=== PATIENT | male | born 1950 | race Caucasian/White ===

== ENCOUNTER → 2018-02-13 | Day surgery (SDC) | payer MEDICARE, OTHER ==
[~2018-02-13] VITALS: Ht 170.2 cm; Wt 100.3 kg
[~2018-02-13] MED LIST: ASCO10006 PO; ASPI-586 PO; FERR-84 PO; HEParin 1000 UNIT/ML (10ML VIAL) FOR BOLUS ONE; LACT1TAB25 PO; LEVO175T5 PO; LIDOCAINE 1% INJ 20 ML 20 ML VIAL ONE; LISI40TA PO; MAGN500C15 PO; METO-370 PO; MIDAZOLAM 5 MG/5 ML (VERSED) VIAL ONE; MULT-1061 PO; NITR0.4T42 SL; NITRO DRIP 25000 MCG/D5W 0 ML IV ONE; NS IV 1000 ML 1,000 ML IV ONE; NS IV 1000 ML 1,000 ML IV SCH; OMEG1CAP58 PO; OXYB5TAB9 PO; PANT40TA3 PO; PATIENT MAY USE OWN MEDS, ALL PO SCH; POTA99TA21 PO; SAW450CA7 PO; SIMV40TA4 PO; TAMS0.4C2 PO; TRAZ-190 PO; diphenhydrAMINE 50 MG/ML INJ (BENADRYL) ONE; fentaNYL INJECTION 100 MCG/2 ML AMP ONE
[2018-02-13 09:32] LABS: HEMOGLOBIN 14.1 G/DL (13.3-17.7); MEAN PLATELET VOLUME 10.8 FL (7.4-10.4); RED BLOOD COUNT 4.51 10^6/uL (4.35-5.85); RED CELL DISTRIBUTION WIDTH 13.2 % (10.0-14.5); WHITE BLOOD COUNT 6.2 10^3/uL (4.3-11.0)
[2018-02-13 09:46] LABS: INR 1.1 (0.8-1.4)
[2018-02-13 09:53] LABS: ALANINE AMINOTRANSFERASE 44 U/L (0-55); ALBUMIN 4.1 GM/DL (3.2-4.5); ALKALINE PHOSPHATASE 86 U/L (40-136); BILIRUBIN,TOTAL 0.8 MG/DL (0.1-1.0); BUN/CREATININE RATIO 18; CALCIUM 9.1 MG/DL (8.5-10.1); CARBON DIOXIDE 26 MMOL/L (21-32); CHLORIDE 105 MMOL/L (98-107); CHOLESTEROL 155 MG/DL (< 200); CREATININE SERUM 1.01 MG/DL (0.60-1.30); GFR ESTIMATED > 60; GLUCOSE 90 MG/DL (70-105); HDL CHOLESTEROL 27 MG/DL (40-60); SODIUM 139 MMOL/L (135-145); TOTAL PROTEIN 6.6 GM/DL (6.4-8.2); TRIGLYCERIDES 87 MG/DL (<150); VLDL CHOLESTEROL 17 MG/DL (5-40)
[2018-02-13 10:25] VITALS: BP 128/81
--- NOTE | 2018-02-13 12:31 | Cardiac Procedure Note-CS/ASA ---
Pre-Procedure Note Pre-Op Procedure Note H&P Reviewed The H&P was reviewed, patient examined and no changes noted. Date H&P Reviewed: Feb 13, 2018 Time H&P Reviewed: 12:31 Conscious Sedation Pre-Proced Time Reviewed: 12:31 ASA Class: 3 Airway Mallampati Classification: ([place] appropriate class) I. II. III, IV Lungs Heart ASA score ASA 1: a normal healthy patient ASA 2: a patient with a mild systemic disease (mid diabetes, controlled hypertension, obesity ASA 3: a patient with a severe systemic disease that limits activity (angina , COPD, prior Myocardial infarction) ASA 4: a patient with an incapacitating disease that is a constant threat to life (CHF, renal failure) ASA 5: a moribund patient not expected to survive 24 hrs. (ruptured aneurysm) ASA 6: a declared brain patient whose organs are being harvested. For emergent operations, add the letter E after the classification Grade 2 Sedation Plan: Analgesia, Amnesia, Plan communicated to team members, Discussed options with patient/fam, Discussed risks with patient/fam Note The patient is an appropriate candidate to undergo the planned procedure, sedation, and anesthesia. The patient immediately re-assessed prior to indication. MORGAN ARIAS MD FACP FAC CCDS Feb 13, 2018 12:31
--- NOTE | 2018-02-13 13:31 | CARDIAC CATHETERIZATION ---
DATE OF SERVICE: 02/13/2018 CARDIAC CATHETERIZATION REPORT INDICATIONS: The patient is a 67-year-old man, who has had the symptoms of new onset of angina. He has coronary artery disease risk factors. Cardiac catheterization was carried out today after having obtained an informed consent. PROCEDURE: He was brought to the cardiac catheterization laboratory in a fasting state. The right groin was prepared in the usual sterile fashion. Lidocaine 1% was used as local anesthesia. Modified Seldinger technique was used to advance a 5-Italian sheath in the right femoral artery, 5-Italian JL4 catheter for left coronary angiography, 5-Italian JR4 catheter for right coronary angiography and a 5-Italian pigtail catheter was used for left heart catheterization and left ventricular angiography. At the end of the procedure, angiography of the right femoral artery was carried out through the sheath. Mynx was used to achieve hemostasis. He tolerated the procedure well. HEMODYNAMICS: Left ventricular end-diastolic pressure following coronary angiography was 15 mmHg. There was no significant pressure gradient on pullback across the aortic valve. Ascending aortic pressure was 121/72 with a mean of 94 mmHg. LEFT VENTRICULAR ANGIOGRAPHY: Left ventricular angiography was carried out in the right anterior oblique projection. Global left ventricular systolic function is normal. No regional wall motion abnormalities are seen and left ventricular ejection fraction is approximately 60%. CORONARY ANGIOGRAPHY: The left main coronary artery does not exhibit significant peripheral disease. Left anterior descending artery has 60% stenosis following the origin of the first diagonal branch. Following the origin of the second diagonal branch, there is 99% stenosis of the left anterior descending artery. Further downstream, there is approximately 70% stenosis of the mid left anterior descending. The first diagonal branch has approximately 50% proximal stenosis. This is a small caliber vessel. The second diagonal branch has 70% to 80% proximal stenosis. This is a fairly large caliber branch. The left circumflex artery has mild plaques. Right coronary artery is dominant and has multiple up to 50% stenoses throughout its course. CONCLUSIONS: 1. Coronary artery disease primarily consisting of up to 99% bifurcation stenosis within the mid left anterior descending artery at the site of the bifurcation with a large second diagonal branch. The right coronary artery has diffuse moderate disease. 2. Normal global left ventricular systolic function with ejection fraction approximately 60%. 3. Mild elevation of the left ventricular end-diastolic pressure. 4. No significant mitral regurgitation. DISCUSSION AND RECOMMENDATIONS: Based on results of the study, it appears that coronary artery bypass surgery would be a better and more durable treatment option. We discussed this with the patient and I spoke with Dr. Rodriguez of the cardiovascular thoracic surgery at the [facility] in [place], [place], who has kindly accepted the patient in transfer. Arrangements are being made for transfer at the time of this dictation. Job ID: [id number] DocumentID: [id number] Dictated Date: 02/13/2018 13:16:05 Mini Shifter Date: 02/13/2018 13:30:11 Dictated By: MORGAN ARIAS MD, MA, FACP, FACC,
[2018-02-13 13:51] VITALS: BP 136/88
[2018-02-13 14:00] VITALS: BP 136/88
[2018-02-13 14:08] VITALS: BP 141/89
[2018-02-13 14:15] VITALS: BP 127/85
--- NOTE | 2018-02-26 16:39 | Cardiology Discharge Summary ---
Diagnosis/Chief Complaint Date of Admission 02/13/18 Date of Discharge 02/13/18 Final/Discharge Diagnosis Angina pectoris CAD: Card cath of 02/14/18 showed coronary artery disease primarily consisting of up to 99% bifurcation stenosis within the mid left anterior descending artery at the site of the bifurcation with a large second diagonal branch. The right coronary artery has diffuse moderate disease. Normal global left ventricular systolic function with ejection fraction approximately 60%. Chief Complaint/HPI Chief Complaint/HPI 67 yo man with new onset of angina found to have considerable CAD for which CABG appears to be the best treatment option. Spoke with Dr Rodriguez at [facility]. He accepted pt in transfer. Pt transferred in stable condition after we had discussed the rationale, pros, and cons of the transfer Discharge Summary Procedures None. Discussion & Recommendations Home Medications Reviewed patient Home Medication Reconciliation performed by pharmacy medication reconciliations test technician and/or nursing. Patients Allergies have been reviewed. Discharge Home Medications: Reviewed and agree with Discharge Medication list on patient's Discharge Instruction sheet MORGAN ARIAS MD FACP FAC CCDS Feb 26, 2018 16:39
== END | disposition home or self-care (01) ==
LOC: CATH 08:49
PROVIDERS: ATTEND Internal Medicine Cardiovascular Disease
DX: I25.10 Atherosclerotic heart disease of native coronary artery without angina pectoris (principal); I10 Essential (primary) hypertension; N40.0 Benign prostatic hyperplasia without lower urinary tract symptoms; E66.9 Obesity, unspecified; Z68.34 Body mass index [BMI] 34.0-34.9, adult; Z82.49 Family history of ischemic heart disease and other diseases of the circulatory system; Z79.82 Long term (current) use of aspirin; Z79.899 Other long term (current) drug therapy
CPT/HCPCS: 36415; 80053; 80061; 85027; 85610; 85730; 87081; 93458

== ENCOUNTER 2018-06-10 00:52 | Observation (INO) | payer MEDICARE, OTHER ==
[~2018-06-10] VITALS: Ht 170.2 cm; Wt 104.9 kg
[2018-06-10] VITALS (15 sets, daily range): BP systolic 82–168; BP diastolic 62–93
[~2018-06-10 00:52] MED LIST changes: -HEParin 1000 UNIT/ML (10ML VIAL) FOR BOLUS ONE; -LIDOCAINE 1% INJ 20 ML 20 ML VIAL ONE; -MIDAZOLAM 5 MG/5 ML (VERSED) VIAL ONE; -NITRO DRIP 25000 MCG/D5W 0 ML IV ONE; -NS IV 1000 ML 1,000 ML IV ONE; -NS IV 1000 ML 1,000 ML IV SCH; -PATIENT MAY USE OWN MEDS, ALL PO SCH; -diphenhydrAMINE 50 MG/ML INJ (BENADRYL) ONE; -fentaNYL INJECTION 100 MCG/2 ML AMP ONE
[2018-06-10] MEDS ORDERED: NITROGLYCERIN 0.4 MG SL TABS BTL 25'S SL PRN ×2 (01:00→03:45)
[2018-06-10] MEDS ORDERED: ASPIRIN 81 MG CHEW (CHILDREN'S ASA) PO ONE (01:00)
--- NOTE | 2018-06-10 01:06 | ED Chest Pain ---
General Chief Complaint: Chest Pain Stated Complaint: HEART PALPATATIONS Source: patient Exam Limitations: no limitations History of Present Illness Date Seen by Provider: Jun 10, 2018 Time Seen by Provider: 00:55 Initial Comments Patient presents to ER by private conveyance with chief complaint of some chest pressure been going off and on for the past 3 days. He is also felt very wore out and sluggish. Not short of breath coughing fever chills or nausea. No sweats. The pain stays in the middle of his chest and he describes it as a pressure about a 3-4 out of 10. This latest episode started about 30 minutes prior to arrival. He has not taken any nitroglycerin for it he does take a baby aspirin a day and does not take any extra. He's not on antiplatelet or blood thinner. He had a CABG [address] Wooten in [facility] 6 weeks ago. He does not smoke but he did have a thyroidectomy many years ago and is on Synthroid. No diabetes but he does have high blood pressure and is using hyper cholesterolemia meds Allergies and Home Medications Allergies Coded Allergies: No Known Drug Allergies (Unverified , 02/13/18) Home Medications Ascorbic Acid 1,000 Mg Tablet, 1,000 MG PO DAILY, (Reported) Aspirin 81 Mg Tablet.dr, 81 MG PO DAILY, (Reported) Ferrous Sulfate 325 Mg Tablet, 325 MG PO DAILY, (Reported) Lactobacillus Acidophilus 1 Each Tablet, 1 EACH PO DAILY, (Reported) Levothyroxine Sodium 175 Mcg Tablet, 175 MCG PO DAILY, (Reported) Lisinopril 40 Mg Tablet, 40 MG PO DAILY, (Reported) Magnesium Oxide 500 Mg Capsule, 500 MG PO HS, (Reported) Metoprolol Succinate 50 Mg Tab.er.24h, 50 MG PO DAILY, (Reported) Multivit-Min/FA/Lycopen/Lutein 1 Each Tablet, 1 EACH PO DAILY, (Reported) Nitroglycerin 0.4 Mg Tab.subl, 0.4 MG SL PRN, (Reported) [place]-3 Fatty Acids/Fish Oil 1 Each Capsule, 1 EACH PO DAILY, (Reported) Oxybutynin Chloride 5 Mg Tablet, 5 MG PO BID, (Reported) Pantoprazole Sodium 40 Mg Tablet.dr, 40 MG PO DAILY, (Reported) Potassium Gluconate 99 Mg Tablet, 99 MG PO DAILY, (Reported) Saw [place] Fruit 450 Mg Capsule, 1,350 MG PO HS, (Reported) Simvastatin 40 Mg Tablet, 40 MG PO DAILY, (Reported) Tamsulosin HCl 0.4 Mg Cap.er.24h, 0.4 MG PO DAILY, (Reported) Trazodone HCl 100 Mg Tablet, 100 MG PO HS, (Reported) Patient Home Medication List Home Medication List Reviewed: Yes Review of Systems Review of Systems Constitutional: No chills, No diaphoresis, No fever; malaise, weakness EENTM: No Blurred Vision, No Double Vision Respiratory: Denies Cough, Denies Shortness of Air Cardiovascular: Denies Chest Pain, Denies Edema Gastrointestinal: Denies Abdomen Distended, Denies Abdominal Pain Past Aoiaimk-Fguztq-Pictvw Hx Patient Social History Alcohol Use: Denies Use Recreational Drug Use: No Smoking Status: Never a Smoker Recent Foreign Travel: No Contact w/Someone Who Travel: No Immunizations Up To Date Date of Pneumonia Vaccine: Jan 31, 2018 Physical Exam Vital Signs Vital Signs - First Documented 06/10/18 00:56 Temp 97.8 Pulse 83 Resp 18 B/P (MAP) 156/88 (110) Pulse Ox 94 O2 Delivery Room Air Capillary Refill : Height, Weight, BMI Height: 5'7.00" Weight: 221lbs. 2.0oz. 100.493961ns; 34.6 BMI Method: General Appearance: WD/WN, Anxious, Mild Distress HEENT: PERRL/EOMI, Pharynx Normal; No Moist Mucous Membranes Neck: Full Range of Motion, Normal Inspection, Non Tender, Supple Respiratory: Chest Non Tender, Lungs Clear, Normal Breath Sounds, No Accessory Muscle Use, No Respiratory Distress Cardiovascular: Regular Rate, Rhythm, Normal Peripheral Pulses Gastrointestinal: Normal Bowel Sounds, Non Tender, Soft Extremity: Normal Capillary Refill, Normal Inspection, No Pedal Edema; No Pedal Edema (mild 1+ bilateral) Neurologic/Psychiatric: Alert, Oriented x3 Skin: Normal Color, Warm/Dry Progress/Results/Core Measures Results/Orders Lab Results Laboratory Tests Test 06/10/18 00:59 Range/Units White Blood Count 5.2 4.3-11.0 10^3/uL Red Blood Count 4.78 4.35-5.85 10^6/uL Hemoglobin 14.3 13.3-17.7 G/DL Hematocrit 43 40-54 % Mean Corpuscular Volume 90 80-99 FL Mean Corpuscular Hemoglobin 30 25-34 PG Mean Corpuscular Hemoglobin Concent 33 32-36 G/DL Red Cell Distribution Width 14.5 10.0-14.5 % Platelet Count 181 130-400 10^3/uL Mean Platelet Volume 11.3 H 7.4-10.4 FL Neutrophils (%) (Auto) 55 42-75 % Lymphocytes (%) (Auto) 29 12-44 % Monocytes (%) (Auto) 10 0-12 % Eosinophils (%) (Auto) 5 0-10 % Basophils (%) (Auto) 1 0-10 % Neutrophils # (Auto) 2.8 1.8-7.8 X 10^3 Lymphocytes # (Auto) 1.5 1.0-4.0 X 10^3 Monocytes # (Auto) 0.5 0.0-1.0 X 10^3 Eosinophils # (Auto) 0.3 0.0-0.3 10^3/uL Basophils # (Auto) 0.1 0.0-0.1 10^3/uL Prothrombin Time 13.3 12.2-14.7 SEC INR Comment 1.0 0.8-1.4 Activated Partial Thromboplast Time 29 24-35 SEC Sodium Level 142 135-145 MMOL/L Potassium Level 3.9 3.6-5.0 MMOL/L Chloride Level 106 98-107 MMOL/L Carbon Dioxide Level 25 21-32 MMOL/L Anion Gap 11 5-14 MMOL/L Blood Urea Nitrogen 23 H 7-18 MG/DL Creatinine 1.24 0.60-1.30 MG/DL Estimat Glomerular Filtration Rate 58 BUN/Creatinine Ratio 19 Glucose Level 102 70-105 MG/DL Calcium Level 8.7 8.5-10.1 MG/DL Corrected Calcium 8.5 8.5-10.1 MG/DL Magnesium Level 2.4 1.8-2.4 MG/DL Total Bilirubin 0.5 0.1-1.0 MG/DL Aspartate Amino Transf (AST/SGOT) 36 H 5-34 U/L Alanine Aminotransferase (ALT/SGPT) 45 0-55 U/L Alkaline Phosphatase 86 40-136 U/L Myoglobin 61.9 10.0-92.0 NG/ML Troponin I < 0.30 <0.30 NG/ML B-Type Natriuretic Peptide 52.0 <100.0 PG/ML Total Protein 7.2 6.4-8.2 GM/DL Albumin 4.2 3.2-4.5 GM/DL My Orders Orders - JANELLE AJ Continuous Ekg Monitoring (06/10/18 01:00) Ekg Tracing (06/10/18 01:00) Cbc With Automated Diff (06/10/18 01:00) Magnesium (06/10/18 01:00) Chest 1 View, Ap/Pa Only (06/10/18 01:00) Cardiac Profile 1 (06/10/18 01:00) Comprehensive Metabolic Panel (06/10/18 01:00) Myoglobin Serum (06/10/18 01:00) Protime With Inr (06/10/18 01:00) Partial Thromboplastin Time (06/10/18 01:00) O2 (06/10/18 01:00) Lipid Panel (06/11/18 06:00) Aspirin Chewable Tablet (Baby Aspirin Ch (06/10/18 01:00) Nitroglycerin 0.4 Mg Btl 25's (Nitrostat (06/10/18 01:00) Saline Lock/Iv-Start (06/10/18 01:00) BNP (06/10/18 01:00) Saline Lock/Iv-Start (06/10/18 01:48) Ns Iv 1000 Ml (Sodium Chloride 0.9%) (06/10/18 01:48) Ns Iv 1000 Ml (Sodium Chloride 0.9%) (06/10/18 01:46) Medications Given in ED Current Medications Medications Dose Ordered Sig/Thomas Route Start Time Stop Time Status Last Admin Dose Admin Aspirin 324 mg ONCE ONCE PO 06/10/18 01:00 06/10/18 01:01 DC 06/10/18 01:04 324 MG Nitroglycerin 0.4 mg UD PRN SL 06/10/18 01:00 06/10/18 01:04 0.4 MG Vital Signs/I&O 06/10/18 00:56 Temp 97.8 Pulse 83 Resp 18 B/P (MAP) 156/88 (110) Pulse Ox 94 O2 Delivery Room Air Progress Progress Note : Time: 02:05 Progress Note After single dose of nitroglycerin his blood pressure came down from 140 systolic to about 90 systolic but his pressure was significantly relieved to nearly nonexistent. He is not having any nausea shortness of breath or sweats. We'll go ahead and hang a liter fluids IV and work towards an observation stay. Cardiac catheterization February [address] Rice demonstrates the patient has severe and multivessel involved coronary artery disease requiring coronary artery bypass grafting. EF 60%. ED ACS 18 points not low risk. Not low risk. This patient is not a candidate for early discharge and should receive a standard chest pain evaluation with delayed troponin testing. Initial ECG Impression Date: Jun 10, 2018 Initial ECG Impression Time: 00:59 Initial ECG Rate: 71 Initial ECG Rhythm: Normal Sinus Initial ECG Intervals: TN (200) Initial ECG Impression: Normal, Nonspecific Changes Diagnostic Imaging Diagonstic Imaging: Xray Plain Films/CT/US/NM/MRI: chest (1v) Comments No acute cardiopulmonary processes noted. Lopez from previous thyroidectomy noted. Sternotomy wires noted. Reviewed: Reviewed by Me Departure Communication (Admissions) Time/Spoke to Admitting Phy: 02:10 Discussed case lab imaging EKG and findings with Dr. Wong and he agrees to observe the patient Time/Spoke to Consulting Phy: 02:05 Discussed case lab imaging EKG with Dr. Anglin and he agrees the patient merits an observation overnight. Impression Primary Impression: Chest pressure Additional Impressions: History of coronary artery bypass graft x 2 Transient hypotension Disposition: ADMITTED INPATIENT Condition: Stable Admissions Decision to Admit Reason: Admit from ER (General) Decision to Admit/Date: Jun 10, 2018 Time/Decision to Admit Time: 02:18 Departure-Patient Inst. Referrals: REKHA MELTON MD (PCP/Family) Primary Care Physician Copy Copies To 1: REKHA MELTON MD, TITUS J Jun 10, 2018 01:06
[2018-06-10 01:16] LABS: BASOPHILS # (AUTO) 0.1 10^3/uL (0.0-0.1); BASOPHILS % (AUTO) 1 % (0-10); EOSINOPHILS # (AUTO) 0.3 10^3/uL (0.0-0.3); EOSINOPHILS % (AUTO) 5 % (0-10); HEMATOCRIT 43 % (40-54); HEMOGLOBIN 14.3 G/DL (13.3-17.7); LYMPHOCYTES # (AUTO) 1.5 X 10^3 (1.0-4.0); LYMPHOCYTES % (AUTO) 29 % (12-44); MEAN CORPUSCULAR HEMOGLOBIN 30 PG (25-34); MEAN CORPUSCULAR HGB CONC 33 G/DL (32-36); MEAN CORPUSCULAR VOLUME 90 FL (80-99); MEAN PLATELET VOLUME 11.3 FL (7.4-10.4); MONOCYTES # (AUTO) 0.5 X 10^3 (0.0-1.0); MONOCYTES % (AUTO) 10 % (0-12); NEUTROPHILS # (AUTO) 2.8 X 10^3 (1.8-7.8); NEUTROPHILS % (AUTO) 55 % (42-75); PLATELET COUNT 181 10^3/uL (130-400); RED BLOOD COUNT 4.78 10^6/uL (4.35-5.85); RED CELL DISTRIBUTION WIDTH 14.5 % (10.0-14.5); WHITE BLOOD COUNT 5.2 10^3/uL (4.3-11.0)
[2018-06-10 01:18] LABS: PROTHROMBIN TIME PATIENT 13.3 SEC (12.2-14.7)
[2018-06-10] MEDS ORDERED: ATOR40TA70 PO (01:20)
[2018-06-10] MEDS ORDERED: CARV6.252 (01:20)
[2018-06-10] MEDS ORDERED: LEVO200T6 (01:20)
[2018-06-10 01:27] LABS: CARBON DIOXIDE 25 MMOL/L (21-32); CHLORIDE 106 MMOL/L (98-107); POTASSIUM 3.9 MMOL/L (3.6-5.0); SODIUM 142 MMOL/L (135-145)
[2018-06-10 01:28] LABS: ALANINE AMINOTRANSFERASE 45 U/L (0-55); ALBUMIN 4.2 GM/DL (3.2-4.5); ALKALINE PHOSPHATASE 86 U/L (40-136); BILIRUBIN,TOTAL 0.5 MG/DL (0.1-1.0); BUN/CREATININE RATIO 19; CALCIUM 8.7 MG/DL (8.5-10.1); CREATININE SERUM 1.24 MG/DL (0.60-1.30); GFR ESTIMATED 58; GLUCOSE 102 MG/DL (70-105); MAGNESIUM 2.4 MG/DL (1.8-2.4); TOTAL PROTEIN 7.2 GM/DL (6.4-8.2)
[2018-06-10 01:34] LABS: MYOGLOBIN SERUM 61.9 NG/ML (10.0-92.0)
[2018-06-10] MEDS ORDERED: NS IV 1000 ML 1,000 ML ONE (01:46)
[2018-06-10] MEDS ORDERED: NS IV 1000 ML 1,000 ML IV SCH (01:48)
--- NOTE | 2018-06-10 03:00 | NUR ---
ERIKA PAINTING admitted to room 432-1, with an admitting diagnosis of chest pain r/o acs, transient hypotension secondary to nitroglyceria, on 06/10/18 from ER via , accompanied by staff. ERIKA PAINTING introduced to surroundings, call light, bed controls, phone, TV, temperature control, lights, meal times, smoking policy, visitor policy, side rail policy, bathrooms and showers. Patient Rights given to patient in the handbook. ERIKA PIANTING verbalizes understanding that [facility] is not responsible for the loss or damage to any personal effects or valuables that are kept in the patients possession during their hospitalization.
[2018-06-10] MEDS ORDERED: 1/2 NS W/KCL 20 MEQ/L 1,000 ML IV ONE (03:29)
[2018-06-10] MEDS ORDERED: CARV3.122 PO (03:30)
[2018-06-10] MEDS: 1/2 NS W/KCL 20 MEQ/L 1,000 ML IV SCH ×2 (03:31→08:44)
[2018-06-10] MEDS ORDERED: FURO20TA4 PO (03:33)
[2018-06-10] MEDS ORDERED: ACET-2650 PO (03:36)
[2018-06-10] MEDS ORDERED: ONDANSETRON 4 MG/2 ML (SDV) Z0FRAN IV PRN (03:45)
[2018-06-10] MEDS ORDERED: morphine INJ 4 MG/ML 1 ML (VIAL/SYRINGE) IV PRN (03:45)
[2018-06-10] MEDS ORDERED: ACETAMINOPHEN 500 MG TAB (TYLENOL) PO PRN (03:45)
[2018-06-10] MEDS ORDERED: LEVO200T6 PO (06:27)
[2018-06-10] MEDS ORDERED: LEVOTHYROXINE 50 MCG (LEVOTHROID) TAB PO SCH (06:30)
--- NOTE | 2018-06-10 07:06 | Diagnostic Imaging Report ---
EXAMINATION: Chest radiograph, portable AP view. DATE: June 10, 2018 at 0119 hours. INDICATION: 67-year-old male, chest pain. COMPARISON: None. FINDINGS: There are surgical clips at the level of the lower neck near midline. There are median sternotomy wires. Heart size is within normal limits. There is no identified pneumothorax. There is no large pleural effusion. There is a nodular opacity projecting over the left midlung measuring approximately 9 mm in size. There is no otherwise identified potential focal airspace consolidation. IMPRESSION: 1. Potential 9 mm nodule in the left midlung. Recommend dedicated CT chest without contrast for further assessment. Dictated by: Dictated on workstation # [id number]
[2018-06-10 07:26] LABS: CHOLESTEROL 132 MG/DL (< 200); HDL CHOLESTEROL 22 MG/DL (40-60); TRIGLYCERIDES 95 MG/DL (<150); VLDL CHOLESTEROL 19 MG/DL (5-40)
[2018-06-10] MEDS ORDERED: ASPIRIN E.C. 81 MG (ECOTRIN) TAB PO SCH (09:00)
[2018-06-10] MEDS ORDERED: CARVEDILOL 6.25 MG (COREG) TAB PO SCH (09:00)
[2018-06-10] MEDS ORDERED: lisINopril 40 MG (PRINIVIL) TABLET PO SCH (09:00)
--- NOTE | 2018-06-10 09:13 | NUR ---
PT REFUSING LISINOPRIL. STATES HE NO LONGER TAKES.
--- NOTE | 2018-06-10 11:19 | Short Stay Summary ---
History of Present Illness History of Present Illness Reason for visit/HPI 67 years old gentleman with history of coronary artery disease, had CABG in February 2018. Has been complaint of generalized fatigue and loss of energy. Had some chest tightness and late last night, came into the emergency room and given sublingual nitroglycerin with appropriate relief of his chest pain, he became slightly hypotensive, responded to IV fluid, this morning he is feeling well. Denied any chest pain, shortness of breath, palpitation, syncope or near syncopal episodes. No EKG changes, cardiac enzymes were negative Date of Admission Jun 10, 2018 at 02:38 Date of Discharge June 10, 2018 Time Seen by Provider: 11:53 Attending Physician Giovanni Wong MD Admitting Physician Thee Palafox MD Consult Allergies and Home Medications Allergies Coded Allergies: No Known Drug Allergies (Unverified , 02/13/18) Home Medications Acetaminophen 650 Mg Tablet.er, 650 MG PO Q8H PRN for PAIN-MILD, (Reported) Ascorbic Acid 1,000 Mg Tablet, 1,000 MG PO DAILY, (Reported) Aspirin 81 Mg Tablet.dr, 81 MG PO DAILY, (Reported) Atorvastatin Calcium 40 Mg Tablet, 40 MG PO DAILY, (Reported) Carvedilol 3.125 Mg Tablet, 3.125 MG PO BID, (Reported) Ferrous Sulfate 325 Mg Tablet, 325 MG PO DAILY, (Reported) Furosemide 20 Mg Tablet, 20 MG PO DAILY, (Reported) Lactobacillus Acidophilus 1 Each Tablet, 1 EACH PO DAILY, (Reported) Levothyroxine Sodium 200 Mcg Tablet, 200 MCG PO DAILY, (Reported) Lisinopril 40 Mg Tablet, 40 MG PO DAILY, (Reported) Magnesium Oxide 500 Mg Capsule, 500 MG PO HS, (Reported) Metoprolol Succinate 50 Mg Tab.er.24h, 50 MG PO DAILY, (Reported) Multivit-Min/FA/Lycopen/Lutein 1 Each Tablet, 1 EACH PO DAILY, (Reported) Nitroglycerin 0.4 Mg Tab.subl, 0.4 MG SL PRN, (Reported) [place]-3 Fatty Acids/Fish Oil 1 Each Capsule, 1 EACH PO DAILY, (Reported) Oxybutynin Chloride 5 Mg Tablet, 5 MG PO BID, (Reported) Pantoprazole Sodium 40 Mg Tablet.dr, 40 MG PO DAILY, (Reported) Potassium Gluconate 99 Mg Tablet, 99 MG PO DAILY, (Reported) Saw [place] Fruit 450 Mg Capsule, 1,350 MG PO HS, (Reported) Tamsulosin HCl 0.4 Mg Cap.er.24h, 0.4 MG PO DAILY, (Reported) Trazodone HCl 100 Mg Tablet, 100 MG PO HS, (Reported) Patient Home Medication List Home Medication List Reviewed: Yes Past Jrqaqbg-Yzxahd-Kgifbd Hx Patient Social History Marrital Status: Employed/Student: employed Alcohol Use: Denies Use Recreational Drug Use: No Smoking Status: Never a Smoker Physical Abuse Screen: No Sexual Abuse: No Recent Foreign Travel: No Contact w/other who traveled: No Recent Hopitalizations: Yes (bypass Feb[facility]15 at [facility]) Recent Infectious Disease Expo: No Immunizations Up To Date Tetanus Booster (TDap): Unknown Date of Pneumonia Vaccine: Mar 12, 2018 Date of Influenza Vaccine: Mar 12, 2018 Seasonal Allergies Seasonal Allergies: No Surgeries Yes CABG Respiratory No Cardiovascular Yes (BYPASS FEB 2018) High Cholesterol, Hypertension Neurological No Genitourinary Yes (takes flomax) Gastrointestinal No Gastroesophageal Reflux Musculoskeletal No Endocrine History of Endocrine Disorders: Yes (THYROIDECTOMY) Cancer No Psychosocial History of Psychiatric Problem: No Integumentary History of Skin or Integumenta: No Blood Transfusions History of Blood Disorders: No Family Medical History Family Hx: FH: emphysema 19 MOTHER FH: heart disease G8 SISTER Myocardial infarction Maternal Grandfather Review of Systems Constitutional: see HPI, malaise, weakness EENTM: see HPI, no symptoms reported Respiratory: see HPI; No cough; dyspnea on exertion; No hemoptysis, No orthopnea, No phlegm, No short of breath, No stridor, No wheezing, No other Cardiovascular: see HPI, chest pain; No edema, No Hx of Intervention, No palpitations, No syncope, No vascular heart diseas, No other Gastrointestinal: no symptoms reported, see HPI Genitourinary: no symptoms reported, see HPI Musculoskeletal: no symptoms reported, see HPI Skin: no symptoms reported, see HPI Psychiatric/Neurological: No Symptoms Reported, See HPI Physical Exam Vital Signs Vital Signs - First Documented 06/10/18 00:56 Temp 97.8 Pulse 83 Resp 18 B/P (MAP) 156/88 (110) Pulse Ox 94 O2 Delivery Room Air Capillary Refill : Less Than 3 SecondsLess Than 3 Seconds Height, Weight, BMI Height: 5'7.00" Weight: 231lbs. 3.2oz. 104.117773bl; 36.2 BMI Method:Stated General Appearance: No Apparent Distress, WD/WN Eyes: Bilateral Eye Normal Inspection, Bilateral Eye PERRL, Bilateral Eye EOMI HEENT: PERRL/EOMI, TMs Normal, Normal ENT Inspection, Pharynx Normal Neck: Full Range of Motion, Normal Inspection, Non Tender, Supple, Carotid Bruit Respiratory: Chest Non Tender, Lungs Clear, Normal Breath Sounds, No Accessory Muscle Use, No Respiratory Distress Cardiovascular: Regular Rate, Rhythm, No Edema, No Gallop, No JVD, No Murmur, Normal Peripheral Pulses Gastrointestinal: Normal Bowel Sounds, No Organomegaly, No Pulsatile Mass, Non Tender, Soft Back: Normal Inspection, No CVA Tenderness, No Vertebral Tenderness Extremity: Normal Capillary Refill, Normal Inspection, Normal Range of Motion, Non Tender, No Calf Tenderness, No Pedal Edema Neurologic/Psychiatric: Alert, Oriented x3, No Motor/Sensory Deficits, Normal Mood/Affect Skin: Normal Color, Warm/Dry Lymphatic: No Adenopathy Clinical Quality Measures AMI/AHF: ASA po Prior to arrival: No DVT/VTE Risk/Contraindication: Risk Factor Score Per Nursin RFS Level Per Nursing on Admit: 3=High Short Stay Diagnosis Discharge Diagnosis-Short Stay Admission Diagnosis: Chest pain Coronary artery disease Hypertension Hyperlipidemia Final Discharge Diagnosis: Chest pain Coronary artery disease Hypertension Hyperlipidemia Conclusion Labs Laboratory Tests 06/10/18 00:59: White Blood Count 5.2, Red Blood Count 4.78, Hemoglobin 14.3, Hematocrit 43, Mean Corpuscular Volume 90, Mean Corpuscular Hemoglobin 30, Mean Corpuscular Hemoglobin Concent 33, Red Cell Distribution Width 14.5, Platelet Count 181, Mean Platelet Volume 11.3H, Neutrophils (%) (Auto) 55, Lymphocytes (%) (Auto) 29 , Monocytes (%) (Auto) 10, Eosinophils (%) (Auto) 5, Basophils (%) (Auto) 1, Neutrophils # (Auto) 2.8, Lymphocytes # (Auto) 1.5, Monocytes # (Auto) 0.5, Eosinophils # (Auto) 0.3, Basophils # (Auto) 0.1, Prothrombin Time 13.3, INR Comment 1.0, Activated Partial Thromboplast Time 29, Sodium Level 142, Potassium Level 3.9, Chloride Level 106, Carbon Dioxide Level 25, Anion Gap 11, Blood Urea Nitrogen 23H, Creatinine 1.24, Estimat Glomerular Filtration Rate 58 , BUN/Creatinine Ratio 19, Glucose Level 102, Calcium Level 8.7, Corrected Calcium 8.5, Magnesium Level 2.4, Total Bilirubin 0.5, Aspartate Amino Transf ( AST/SGOT) 36H, Alanine Aminotransferase (ALT/SGPT) 45, Alkaline Phosphatase 86, Myoglobin 61.9, Troponin I < 0.30, B-Type Natriuretic Peptide 52.0, Total Protein 7.2, Albumin 4.2 06/10/18 06:47: Troponin I < 0.30, Triglycerides Level 95, Cholesterol Level 132, LDL Cholesterol Direct 100, VLDL Cholesterol 19, HDL Cholesterol 22L Conclusion/Plan Chest pain, better, cardiac enzymes, ECG were normal, continue to monitor as an outpatient Coronary artery disease, CABG x 2 in February 2018, clinically stable, no ECG changes, recommend using nitro as needed Hypertension, monitor blood pressure, and follow up as an outpatient Hyperlipidemia, continue current meds Transient hypotension, better ANNA BAIRES MD Jun 10, 2018 11:19
--- NOTE | 2018-06-10 13:20 | NUR ---
INSTRUCTIONS GIVEN AND VERBALIZED UNDERSTANDING. DC'D AMBULATORY WITH INSIDE SALES SUPERVISOR.
[2018-06-10] MEDS ORDERED: ATORVASTATIN 80 MG (LIPITOR) TABLET PO SCH (21:00)
== END 2018-06-10 11:49 | disposition home or self-care (01) ==
LOC: EDUNIT# 00:52 → ER 00:54 → UNDOADMOB 02:38 → 4TH 02:38 → UNDODISOB 13:20
PROVIDERS: ADMIT Internal Medicine; ATTEND Internal Medicine
DX: R07.9 Chest pain, unspecified (principal); I25.10 Atherosclerotic heart disease of native coronary artery without angina pectoris; Z95.1 Presence of aortocoronary bypass graft; I10 Essential (primary) hypertension; E78.5 Hyperlipidemia, unspecified; I95.9 Hypotension, unspecified; K21.9 Gastro-esophageal reflux disease without esophagitis; E78.00 Pure hypercholesterolemia, unspecified; Z79.82 Long term (current) use of aspirin; Z79.899 Other long term (current) drug therapy
CPT/HCPCS: 36415; 71045; 80053; 80061; 83735; 83874; 83880; 84484; 85025; 85610; 85730; 93005

== ENCOUNTER 2018-07-30 09:22 | Outpatient (RCR) | payer MEDICARE, OTHER ==
[~2018-07-30 09:22] MED LIST changes: +ACET-2650 PO; +ATOR40TA70 PO; +CARV3.122 PO; +CARV6.252; +FURO20TA4 PO; +LEVO200T6; +LEVO200T6 PO
== END 2018-10-07 | disposition home or self-care (01) ==
LOC: CR 09:22
PROVIDERS: ATTEND Internal Medicine Cardiovascular Disease
DX: Z48.812 Encounter for surgical aftercare following surgery on the circulatory system (principal); Z95.1 Presence of aortocoronary bypass graft
CPT/HCPCS: 93798

== ENCOUNTER → 2019-11-19 | Outpatient (CLI) | payer MEDICARE, OTHER ==
[~2019-11-19] MED LIST changes: -METO-370 PO; +METO50TA7 PO; +OXYB5TAB13 PO; -OXYB5TAB9 PO; +SIMV40TA25 PO; -SIMV40TA4 PO; -TRAZ-190 PO; +TRAZ-227 PO
[2019-11-19 08:16] LABS: FREE T4 (FREE THYROXINE) 0.96 NG/DL (0.70-1.48)
== END ==
LOC: LAB 07:18
PROVIDERS: ATTEND Family Medicine
DX: E03.9 Hypothyroidism, unspecified (principal)
CPT/HCPCS: 36415; 84439; 84443

== ENCOUNTER → 2019-12-30 | Outpatient (CLI) | payer MEDICARE, OTHER ==
[2019-12-30 07:23] LABS: ALBUMIN 4.2 GM/DL (3.2-4.5); CHLORIDE 106 MMOL/L (98-107); SODIUM 140 MMOL/L (135-145)
[2019-12-30 07:24] LABS: CALCIUM 8.9 MG/DL (8.5-10.1)
[2019-12-30 07:25] LABS: GLUCOSE 104 MG/DL (70-105); TOTAL PROTEIN 7.1 GM/DL (6.4-8.2); TRIGLYCERIDES 121 MG/DL (<150); VLDL CHOLESTEROL 24 MG/DL (5-40)
[2019-12-30 07:26] LABS: CARBON DIOXIDE 23 MMOL/L (21-32)
[2019-12-30 07:27] LABS: BILIRUBIN,TOTAL 0.6 MG/DL (0.1-1.0)
[2019-12-30 07:29] LABS: ALKALINE PHOSPHATASE 70 U/L (40-136); CREATININE SERUM 1.05 MG/DL (0.60-1.30); GFR ESTIMATED > 60
[2019-12-30 07:30] LABS: BUN/CREATININE RATIO 17; CHOLESTEROL 148 MG/DL (< 200)
[2019-12-30 07:31] LABS: HDL CHOLESTEROL 27 MG/DL (40-60)
[2019-12-30 07:32] LABS: ALANINE AMINOTRANSFERASE 45 U/L (0-55)
== END ==
LOC: LAB 06:50
PROVIDERS: ATTEND Nurse Practitioner Family
DX: E78.2 Mixed hyperlipidemia (principal); I25.10 Atherosclerotic heart disease of native coronary artery without angina pectoris; I77.89 Other specified disorders of arteries and arterioles; I10 Essential (primary) hypertension; E66.9 Obesity, unspecified
CPT/HCPCS: 36415; 80053; 80061

== ENCOUNTER 2020-08-04 08:00 | Day surgery (SDC) | payer MEDICARE, OTHER ==
[2020-08-04] VITALS (10 sets, daily range): BP systolic 146–159; BP diastolic 89–102
[~2020-08-04] VITALS: Ht 170 cm; Wt 103.0 kg
[2020-08-04 07:22] LABS: HEMOGLOBIN 14.7 g/dL (13.3-17.7); MEAN PLATELET VOLUME 11.1 fL (9.0-12.2); WHITE BLOOD COUNT 5.4 10^3/uL (4.3-11.0)
[2020-08-04 07:32] LABS: ALBUMIN 4.2 GM/DL (3.2-4.5); CHLORIDE 106 MMOL/L (98-107); POTASSIUM 4.3 MMOL/L (3.6-5.0); SODIUM 141 MMOL/L (135-145)
[2020-08-04 07:33] LABS: CALCIUM 8.7 MG/DL (8.5-10.1); PROTHROMBIN TIME PATIENT 13.2 SEC (12.2-14.7)
[2020-08-04 07:34] LABS: TOTAL PROTEIN 7.1 GM/DL (6.4-8.2); TRIGLYCERIDES 111 MG/DL (<150); VLDL CHOLESTEROL 22 MG/DL (5-40)
[2020-08-04 07:35] LABS: CARBON DIOXIDE 26 MMOL/L (21-32); GLUCOSE 99 MG/DL (70-105)
[2020-08-04 07:36] LABS: BILIRUBIN,TOTAL 0.3 MG/DL (0.1-1.0)
[2020-08-04 07:38] LABS: ALKALINE PHOSPHATASE 75 U/L (40-136); CREATININE SERUM 1.02 MG/DL (0.60-1.30); GFR ESTIMATED > 60
[2020-08-04 07:39] LABS: BUN/CREATININE RATIO 21; CHOLESTEROL 160 MG/DL (< 200)
[2020-08-04 07:40] LABS: HDL CHOLESTEROL 29 MG/DL (40-60)
[2020-08-04 07:41] LABS: ALANINE AMINOTRANSFERASE 41 U/L (0-55)
[~2020-08-04 08:00] MED LIST changes: +ASCO100024 PO; -ASCO10006 PO; +CARV6.252 PO; +FERR325T18 PO; +FIBER LAXATIVE PO; +HEParin (CATH LAB) 2,000 ML IV ONE; +LEVO112T55 PO; +LIDOCAINE 1% INJ 20 ML 20 ML VIAL ONE; -LISI40TA PO; +LISI40TA9 PO; +NS IV 1000 ML 1,000 ML IV SCH; +NS IV 1000 ML 1,000 ML ONE; -PANT40TA3 PO; +PANT40TA52 PO; +ROSU20TA32 PO
[2020-08-04] MEDS ORDERED: fentaNYL INJECTION 100 MCG/2 ML AMP ONE (08:28)
[2020-08-04] MEDS ORDERED: MIDAZOLAM 5 MG/5 ML (VERSED) VIAL ONE (08:28)
[2020-08-04] MEDS ORDERED: ADENOSINE 90 MG/30 ML (ADENOSCAN) VIAL IV ONE (09:05)
[2020-08-04] MEDS ORDERED: HEParin 1000 UNIT/ML (10ML VIAL) FOR BOLUS ONE (09:05)
--- NOTE | 2020-08-04 09:38 | Cardiac Procedure Note-CS/ASA ---
Pre-Procedure Note Pre-Op Procedure Note H&P Reviewed The H&P was reviewed, patient examined and no changes noted. Date H&P Reviewed: Aug 04, 2020 Time H&P Reviewed: 08:50 Conscious Sedation Pre-Proced Time 08:50 ASA Score 3 For ASA 3 and 4: Consider anesthesia and medical clearance. Also, for patients with a history of failed moderate sedation consider anesthesia. Airway Lungs Heart ASA score ASA 1: a normal healthy patient ASA 2: a patient with a mild systemic disease (mid diabetes, controlled hypertension, obesity ASA 3: a patient with a severe systemic disease that limits activity (angina, COPD, prior Myocardial infarction) ASA 4: a patient with an incapacitating disease that is a constant threat to life (CHF, renal failure) ASA 5: a moribund patient not expected to survive 24 hrs. (ruptured aneurysm) ASA 6: a declared brain- patient whose organs are being harvested. For emergent operations, add the letter E after the classification Mallampati Classification Grade 2 Sedation Plan Analgesia, Amnesia, Plan communicated to team members, Discussed options with patient/fam, Discussed risks with patient/fam The patient is an appropriate candidate to undergo the planned procedure, sedation, and anesthesia. The patient immediately re-assessed prior to indication. MORGAN ARIAS MD FACP FAC CCDS Aug 04, 2020 09:38
--- NOTE | 2020-08-04 09:42 | Discharge Inst-Post CATH ---
Discharge Inst-CATH/EP Post Cardiac Cath/EP D/C Inst Follow Up/Plan F/u with Dr Rice in 2 weeks ACTIVITY * Go Home directly and rest. * Limit activity of the leg (or wrist if it was used) for 7 days including aerobics, swimming, jogging, bicycling, etc. * Restrict stair-climbing for 7 days if possible, if not, climb up with your n on-cath leg, then bring together on the same step. * Avoid lifting, pushing, pulling or excessive movement of the affected ex tremity for 7 days. * Customary sexual activity may be resumed after 2 days-use caution not to use a position that strains or causes pain to the affected extremity. * No driving for 24 hours. * NO SMOKING. * Avoid straining for bowel movements for 7 days. * Gentle walking on level ground is allowed. * Returning to work will depend on the type of procedure and the results. Your doctor will discuss this with you. CALL YOUR DOCTOR FOR ANY OF THE FOLLOWING: *If bleeding from the puncture site occurs- Apply gentle pressure to site with clean cloth and call your doctor or EMS. * If a knot or lump forms under the skin, increases in size, or causes pain. * If bruising appears to be worsening or moving further down your leg instead of disappearing. * Temperature above 101 F. CARE OF YOUR GROIN INCISION; * Bruising or purple discoloration of the skin near the puncture site is common. * You may shower only, no bathtub bathing for 5 days. Be careful to avoid slipping as your leg may feel stiff. * If a closure device was used on your femoral artery, please see the attached guide regarding care of the device and your leg. * Leave dressing on FOR 24 hours. CARE OF YOUR WRIST INCISION; * Bruising or purple discoloration of the skin near the puncture site is common. * You may shower. * DO NOT submerge wrist. * Leave dressing on FOR 24 hours. MORGAN RICE MD [facility] CCDS Aug 04, 2020 09:42
--- NOTE | 2020-08-04 09:42 | Discharge Inst-Cardiology ---
Discharge Inst-Cardiac Discharge Medications Continued Medications: Acetaminophen (Tylenol Arthritis) 650 Mg Tablet.er 650 MG PO Q8H PRN for PAIN-MILD, TAB Ascorbic Acid (Vitamin C) 1,000 Mg Tablet 1000 MG PO DAILY, TAB Aspirin (Aspir 81) 81 Mg Tablet.dr 81 MG PO DAILY, TAB Carvedilol (Carvedilol) 6.25 Mg Tablet 6.25 MG PO BID, TAB Ferrous Sulfate (Ferrous Sulfate) 325 Mg Tablet 325 MG PO DAILY, TAB [Fiber Laxative] () 3 CAP PO HS Furosemide (Furosemide) 20 Mg Tablet 20 MG PO DAILY, TAB Lactobacillus Acidophilus (Probiotic Acidophilus) 1 Each Tablet 1 EACH PO DAILY, TAB Levothyroxine Sodium (Levothyroxine Sodium) 112 Mcg Tablet 224 MCG PO DAILY, TAB Magnesium Oxide (Magnesium) 500 Mg Capsule 500 MG PO HS, CAP Multivit-Min/FA/Lycopen/Lutein (Centrum Silver Men Tablet) 1 Each Tablet 1 EACH PO DAILY, TAB Nitroglycerin (Nitroglycerin) 0.4 Mg Tab.subl 0.4 MG SL PRN for Chest Pain, #24 TAB Lilly-3 Fatty Acids/Fish Oil (Lilly 3 1,000 mg Softgel) 1 Each Capsule 1 EACH PO DAILY, CAP Pantoprazole Sodium (Pantoprazole Sodium) 40 Mg Tablet.dr 40 MG PO DAILY, TAB Potassium Gluconate (Potassium) 99 Mg Tablet 99 MG PO DAILY, TAB Rosuvastatin Calcium (Rosuvastatin Calcium) 20 Mg Tablet 20 MG PO HS, TAB Trazodone HCl (Trazodone HCl) 100 Mg Tablet 100 MG PO HS, TAB MORGAN ARIAS MD FACP FAC CCDS Aug 04, 2020 09:42
[2020-08-04] MEDS ORDERED: PATIENT MAY USE OWN MEDS, ALL PO SCH (09:45)
[2020-08-04] MEDS ORDERED: NS IV 1000 ML 1,000 ML IV SCH (09:45)
--- NOTE | 2020-08-04 10:24 | CARDIAC CATHETERIZATION ---
DATE OF SERVICE: 08/04/2020 CARDIAC CATHETERIZATION REPORT INDICATION FOR PROCEDURE: The patient is a 69-year-old man, who has had coronary artery bypass surgery and who has been experiencing chest discomfort suggestive of new onset of angina. Cardiac catheterization was carried out today after having obtained an informed consent. DESCRIPTION OF PROCEDURE: She was brought to the cardiac catheterization laboratory in a fasting state. Right groin was prepared and draped in the usual sterile fashion. Lidocaine 1% was used for local anesthesia. Modified Seldinger technique was used to advance a 5-Macanese sheath in the right femoral artery. Angiography of the right femoral artery was carried out through the sheath. We used a 5-Macanese JL4 catheter for left coronary angiography and a 5-Macanese JR4 catheter for right coronary angiography. A 5-Macanese JR4 catheter was used for angiography of the saphenous vein graft to the diagonal and for angiography of the left internal mammary artery graft to the left anterior descending. A 5-Macanese pigtail catheter was used for left heart catheterization and left ventricular angiography. Subsequently, we carried out fractional flow reserve measurement in the right coronary artery and that is described below. FRACTIONAL FLOW RESERVE MEASUREMENT IN THE RIGHT CORONARY ARTERY: We exchanged the sheath over a wire for a 6-Macanese sheath. We used a 6-Macanese JR4 catheter with side holes to engage the right coronary artery. Pressure wire was advanced across the lesion in the right coronary artery and the tip of the wire was placed in the distal right coronary artery. We gave 140 mcg per kilogram per minute of adenosine for 2-1/2 minutes. Fractional flow reserve across the combination of all the lesion in the proximal and the mid right coronary artery was 0.89, indicating that the lesions were not hemodynamically significant. The patient received 6000 units of intravenous heparin before the fractional flow reserve measurement. At the end of the procedure, following removal of the diagnostic catheters, a Mynx was used to achieve hemostasis following sheath removal. He tolerated the procedure well. HEMODYNAMICS: Left ventricular end-diastolic pressure following coronary angiography was 25 mmHg. There was no significant pressure gradient on pullback across the aortic valve. Ascending aortic pressure was 151/81 with a mean of 95 mmHg. CORONARY ANGIOGRAPHY: Coronary calcification is seen. Left main coronary artery does not exhibit significant disease. Left anterior descending artery is occluded in its mid portion. Left circumflex artery exhibits mild to moderate plaques in its obtuse marginal branches. The right coronary artery is dominant. It has multiple 40% to 50% stenoses. Fractional flow reserve across the combination of all these lesions is 0.89, indicating that these lesions are not hemodynamically significant. Angiography of the aortocoronary graft to a diagonal branch of the left anterior descending artery is widely patent and does not exhibit significant disease. There is a good distal runoff. LEFT INTERNAL MAMMARY GRAFT ANGIOGRAPHY: Left internal mammary artery graft to the distal left anterior descending artery is intact and does not exhibit significant disease. There is a good distal runoff. LEFT VENTRICULAR ANGIOGRAPHY: Left ventricular angiography was carried out in the right anterior oblique projection. Global left ventricular systolic function is well preserved. Left ventricular ejection fraction is approximately 55% to 60%. CONCLUSIONS: 1. Coronary artery disease consisting of mid vessel including left anterior descending with a patent aortocoronary graft to a diagonal and a patent left internal mammary artery graft to distal left anterior descending. The left circumflex artery exhibits mild to moderate plaques. The right coronary artery is dominant and has multiple 40% to 50% stenosis and fractional flow reserve across the combination of all of these lesions is 0.89, indicating that these are not hemodynamically significant. 2. Elevated left ventricular end-diastolic pressure. 3. Well preserved global left ventricular systolic function with an ejection fraction of 55% to 60%. DISCUSSION AND RECOMMENDATIONS: Based on the results of the study, it appears appropriate to continue a conservative approach. Risk factor modification has been reviewed. Current regimen is being continued. Outpatient followup is advised. Job ID: [id number] DocumentID: [id number] Dictated Date: 08/04/2020 09:51:04 Heel Lining Paster Date: 08/04/2020 10:23:26 Dictated By: MORGAN ARIAS MD, MA, FACP, FACC,
== END 2020-08-04 12:50 | disposition home or self-care (01) ==
LOC: CATH 08:00 → SDC 09:52 → CATH 12:50
PROVIDERS: ATTEND Internal Medicine Cardiovascular Disease
DX: I25.110 Atherosclerotic heart disease of native coronary artery with unstable angina pectoris (principal); E78.2 Mixed hyperlipidemia; E66.9 Obesity, unspecified; I10 Essential (primary) hypertension; M17.10 Unilateral primary osteoarthritis, unspecified knee; N40.0 Benign prostatic hyperplasia without lower urinary tract symptoms; I65.23 Occlusion and stenosis of bilateral carotid arteries; Z68.35 Body mass index [BMI] 35.0-35.9, adult; Z95.1 Presence of aortocoronary bypass graft
CPT/HCPCS: 36415; 80053; 80061; 85027; 85610; 85730; 87081; 93459

== ENCOUNTER 2021-03-05 17:31 | Emergency (ER) | payer OTHER ==
[~2021-03-05] VITALS: Ht 170 cm; Wt 103.4 kg
[~2021-03-05 17:31] MED LIST changes: -HEParin (CATH LAB) 2,000 ML IV ONE; -LIDOCAINE 1% INJ 20 ML 20 ML VIAL ONE; -NS IV 1000 ML 1,000 ML IV SCH; -NS IV 1000 ML 1,000 ML ONE
--- OUTSIDE RECORDS SUMMARY | 2021-03-05 17:38 | XMS REPORT ---
Author Author Anand CORRALES [facility] Address [address] [place], [place] [id number] Care Team Providers Care Career Services Director Name Role Phone CIERA CORRALES PCP Allergies and Adverse Reactions Name Reaction Notes No known allergies Plan of Treatment Planned Activity Comments Planned Date Planned Time Plan/Goal PSA TOTAL 10/24/2019 12:[address] ABD AND PELVIS W/WO CONTRAST 11/05/2019 12:00 AM MAWD 11/06/2019 12:00 AM MAWD 01/10/2020 12:00 AM PSA TOTAL 04/01/2020 12:00 AM Medications Active Name Start Date Estimated Completion Date SIG Co mments magnesium 250 mg oral tablet take 2 table ts by oral route Tylenol Arthritis Pain 650 mg oral tablet extended release take 2 tablets (1,300 mg) by oral route every 8 hours swallowing whole with water. Do not break, crush, dissolve and/or chew. Vitamin C 1,000 mg oral tablet Acidophilus oral capsule ferrous sulfate 325 mg (65 mg iron) oral tablet,delayed release (DR /EC) rosuvastatin 20 mg oral tablet t fritz 1 tablet (20 mg) by oral route once daily trazodone 100 mg oral tablet saul e 1 tablet (100 mg) by oral route once daily at bedtime pantoprazole 40 mg oral tablet,delayed release (DR/EC) take 1 tablet (40 mg) by oral route once daily aspirin 81 mg oral tablet,chewable chew 1 tablet (81 mg) by oral route once daily furosemide 20 mg oral tablet take 1 table t (20 mg) by oral route once daily albuterol sulfate 90 mcg/actuation inhalation HFA aerosol inhale r inhale 1 puff (90 mcg) by inhalation route every 6 hours as needed fiber oral powder use as directed by oral route Centrum Silver 0.4-300-250 mg-mcg-mcg oral tablet take 1 tablet by oral route daily carvedilol 12.5 mg tablet take 1 tablet (12.5 mg) by oral route 2 times per day with food potassium chloride ER 8 mEq tablet,extended release take 1 tablet (8 meq) by oral route once daily This is OTC total of 99mg in the morning levothyroxine 112 mcg tablet 12/09/2020 06/07/2021 saul e 2 tablets (224 mcg) by oral route once daily on an empty stomach 30 minutes before breakfast for 90 days cyclobenzaprine oral tablet 5 mg 12/21/2020 01/20/2021 take 1 tablet (5 mg) by oral route once daily before bedtime Name Start Date Expiration Date SIG Comments Cipro 500 mg oral tablet 10/24/2019 11/14/2019 take 1 tablet (500 mg) by oral route 2 times per day for 21 days cephalexin 500 mg oral tablet 02/04/2020 02/09/2020 ta ke 1 tablet (500 mg) by oral route every 12 hours for 5 days nitroglycerin 0.4 mg sublingual tablet, sublingual 12/09/2020 01/08/2021 place 1 tablet (0.4 mg) by sublingual route at the 1st sign of attack; may repeat every 5 min until relief; if pain persists after 3 tablets in 15 min, prompt medical attention is recommended for 30 days Discontinued Name Start Date Discontinued Date SIG Comments saw palmetto oral 02/20/2020 take 3 s by oral route potassium citrate oral 12/07/2020 levothyroxine 200 mcg oral tablet 12/07/2020 take 1 tablet (200 mcg) by oral route once daily carvedilol 6.25 mg oral tablet 12/07/2020 t fritz 1 tablet (6.25 mg) by oral route 2 times per day with food tamsulosin 0.4 mg oral capsule 02/20/2020 t fritz 1 capsule (0.4 mg) by oral route once daily 1/2 hour following the same meal each day oxybutynin chloride 5 mg oral tablet 11/26/2019 Percocet 5-325 mg oral tablet 02/04/2020 02/20/2020 ta ke 1 tablet by oral route every 6 hours as needed Problem List Not available. Vital Signs Date Time BP-Sys(mm[Hg] BP-Constance(mm[Hg]) HR(bpm) RR(rpm) Temp WT HT HC BMI BSA BMI Percentile O2 Sat(%) 01/19/2021 9:04:00 AM 138 mm[Hg] 82 mm[Hg] 74 {beats}/min 18 rpm 98.1 F 233 lbs 67 in 36.4926 kg/m2 2.2352 m2 96 % 12/21/2020 8:02:00 AM 130 mm[Hg] 70 mm[Hg] 72 {beats}/min 16 rpm 98.2 F 234.125 lbs 67 in 36.67 kg/m2 2.24 m2 96 % 12/07/2020 8:40:00 AM 130 mm[Hg] 80 mm[Hg] 68 {beats}/min 16 rpm 98.2 F 234.25 lbs 67 in 36.69 kg/m2 2.24 m2 97 % 07/02/2020 10:50:00 AM 146 mm[Hg] 108 mm[Hg] 86 {beats}/min 20 rpm 97.9 F 238 lbs 67 in 37.2757 kg/m2 2.259 m2 97 % 03/31/2020 11:33:00 AM 140 mm[Hg] 70 mm[Hg] 75 {beats}/min 18 rpm 98.6 F 236 lbs 67 in 36.96 kg/m2 2.25 m2 95 % 02/20/2020 9:23:00 AM 132 mm[Hg] 90 mm[Hg] 88 {beats}/min 18 rpm 97 F 239 lbs 67 in 37.4323 kg/m2 2.2638 m2 95 % 11/25/2019 9:47:00 AM 122 mm[Hg] 80 mm[Hg] 61 {beats}/min 16 rpm 98.2 F 239 lbs 67 in 37.43 kg/m2 2.26 m2 96 % 11/21/2019 8:44:00 AM 142 mm[Hg] 90 mm[Hg] 73 {beats}/min 16 rpm 97.7 F 237 lbs 67 in 37.1191 kg/m2 2.2543 m2 96 % 11/06/2019 12:05:00 PM 150 mm[Hg] 94 mm[Hg] 68 {beats}/min 16 rpm 97.9 F 235 lbs 70 in 33.72 kg/m2 2.29 m2 95 % 10/24/2019 9:04:00 AM 146 mm[Hg] 90 mm[Hg] 68 {beats}/min 20 rpm 97.9 F 236 lbs 97 % 08/21/2019 2:28:00 PM 152 mm[Hg] 98 mm[Hg] 16 rpm 98.1 F 236 lbs 96 % Social History Name Description Comments Tobacco Never smoker Alcohol Former Caffeine Current every day History of Procedures Date Ordered Description Order Status 11/21/2019 12:00 AM ASSAY OF PSA TOTAL Reviewed 11/28/2019 12:00 AM CYSTOSCOPY Reviewed 01/10/2020 12:00 AM Coronavirus non-CDC test Reviewed 01/10/2020 12:00 AM URINALYSIS AUTO W/SCOPE Reviewed 01/10/2020 12:00 AM METABOLIC PANEL TOTAL CA Reviewed 01/10/2020 12:00 AM COMPLETE CBC W/AUTO DIFF WBC Reviewed 01/10/2020 12:00 AM ELECTROCARDIOGRAM TRACING Reviewed 11/26/2019 12:00 AM ROUTINE VENIPUNCTURE Reviewed 12/07/2020 12:[address] HEAD/BRAIN W/O DYE Returned Results Summary Date and Description Results 11/21/2019 8:55 AM PSA TOTAL 1.010 ng/mL 01/10/2020 11:00 AM GLUCOSE 99 SODIUM 139 POTASS IUM 4.1 CHLORIDE 105.0 mmol/LCO2 26 BUN 15.0 mg/dLCREATININE 1.030 mg/dLCALCIUM 9.0 mg/dLAGE 69 GFR NonAA 72 GFR AA 87 eGFR 72 mL/min/1.73meGFR AA* >60 mL/min/1.73mWBC 5.6 RBC 4.67 HGB 14.80 g/dLHCT 44.20 %MCV 95.0 fLMCH 31.70 pgMCHC 33.50 g/dLRDW SD 44 fLRDW CV 12.60 %MPV 10.80 fLPLT 193 x10E3/uLNRBC# 0.00 NRBC% 0.0 %NEUT 60.3 %LYMP 23.2 %MONO 11.3 %EOS 4.3 %BASO 0.7 #NEUT 3.40 #LYMP 1.31 #MONO 0.64 #EOS 0.24 #BASO 0.04 MANUAL DIFF NOT IND 01/10/2020 11:03 AM COLOR Light-Yellow CLARITY C lear SPEC GRAV 1.008 pH 5.0 PROTEIN Negative GLUCOSE Normal KETONE Negative BILIRUBIN Negative BLOOD Negative NITRITE Negative LEUK SCREEN Negative RBC/HPF 0-3 WBC/HPF 0-5 BACTERIA/HPF None Seen SQUAMOUS EPI/LPF None Seen MUCOUS/LPF Few CULT SET UP? NO 02/01/2020 8:38 AM [id number] NOT DETECTED History Of Immunizations Name Date Admin Mfg Name Mfg Code Trade Name Lot# Route Inj Vis Given Vis Pub CVX Covid-19 08/05/2020 Not Entered NE Moderna COVID-19 Vaccine Not Entered Not Entered 06/12/2020 06/12/2020 212 Covid-19 09/03/2020 Not Entered NE Moderna COVID-19 Vaccine Not Entered Not Entered 12/21/2020 06/12/2020 207 History of Past Illness Name Date of Onset Comments Hypertension Sigmoid diverticulosis Colonic Polyps, Personal History of BPH (benign prostatic hyperplasia) Aug 21 2019 2:42PM Urgency of urination Aug 21 2019 2:42PM Testicular pain Aug 21 2019 2:42PM Testicle pain Oct 24 2019 9:05AM Benign prostatic hyperplasia with lower urinary tract symptoms Oct 24 2019 9:05AM Other obstructive and reflux uropathy Oct 24 2019 9:05AM Left lower quadrant abdominal pain Oct 24 2019 9:05AM Left lower quadrant abdominal pain Nov 05 2019 1:42PM Dark stools Nov 05 2019 1:42PM Testicle pain Nov 05 2019 1:42PM Pre-op testing Nov 06 2019 12:11PM Colon Cancer Screening Nov 06 2019 12:05PM Slowing of Urinary Stream Nov 21 2019 8:44AM Benign prostatic hyperplasia with lower urinary tract symptoms Nov 21 2019 8:44AM Other obstructive and reflux uropathy Nov 21 2019 8:44AM Benign colon polyp Nov 25 2019 9:48AM BPH NOS w ur obs/LUTS Nov 26 2019 1:40PM Prostatitis Nov 26 2019 1:40PM Preoperative examination, unspecified Jan 10 2020 10:47AM Preoperative examination, unspecified Jan 10 2020 10:48AM Slowing of Urinary Stream Jan 31 2020 8:18AM Benign prostatic hyperplasia with lower urinary tract symptoms Jan 31 2020 8:18AM Other obstructive and reflux uropathy Jan 31 2020 8:18AM BPH (benign prostatic hyperplasia) Feb 20 2020 9:26AM S/P TURP Feb 20 2020 9:26AM S/P TURP Mar 31 2020 11:34AM BPH (benign prostatic hyperplasia) Mar 31 2020 11:34AM Benign prostatic hyperplasia with lower urinary tract symptoms Jul 02 2020 10:50AM Other obstructive and reflux uropathy Jul 02 2020 10:50AM Establishing care with new doctor, encounter for Dec 07 2020 8:43AM Adult general medical exam Dec 07 2020 8:43AM HTN (hypertension) Dec 07 2020 8:43AM HLD (hyperlipidemia) Dec 07 2020 8:43AM Hypothyroidism Dec 07 2020 8:43AM CAD (coronary artery disease) Dec 07 2020 8:43AM Osteoarthritis Dec 07 2020 8:43AM Headache Dec 07 2020 8:43AM Insomnia Dec 07 2020 8:43AM GERD (gastroesophageal reflux disease) Dec 07 2020 8:43AM HTN (hypertension) Dec 21 2020 8:08AM Hypothyroidism Dec 21 2020 8:08AM Obesity Dec 21 2020 8:08AM Headache Dec 21 2020 8:08AM Benign prostatic hyperplasia with lower urinary tract symptoms Jan 19 2021 9:01AM Other obstructive and reflux uropathy Jan 19 2021 9:01AM Payers Insurance Name Company Name Plan Name Plan Number Policy Number Brett cy Group Number Start Date [place] CC[place] Optum [place] CC[place] Optum [id number] N/A [facility] [id number] AARP - Medicare Complete 9 [id number] N/A Aetna Aetna [id number] N/A [facility] [phone] N/A History of Encounters Visit Date Visit Type Provider 01/19/2021 Office visit CIERA CORRALES CHROMIUM PLATER 12/21/[address] Mina Blake MD 12/07/[address] Mina Blake MD 07/02/2020 Office visit CIERA CORRALES CHROMIUM PLATER 03/31/2020 Office visit Shay Batista MD 02/20/2020 Office visit Shay Batista MD 02/03/2020 Surgery Shay Batista MD 11/26/2019 Procedures Shay Batista MD 11/25/2019 Office visit Joshua Hernandez MD 11/21/2019 Office visit CIERA CORRALES CHROMIUM PLATER 11/14/2019 Surgery Joshua Hernandez MD 11/06/2019 Office visit Joshua Hernandez MD 10/24/2019 Office visit CIERA CORRALES CHROMIUM PLATER 08/21/2019 Office visit Shay Batista MD
--- OUTSIDE RECORDS SUMMARY | 2021-03-05 17:38 | XMS REPORT ---
Author Author Anand CORRALES [facility] Address [address] [place], [place] [id number] Care Team Providers Care Logistics Clerk Name Role Phone CIERA CORRALES PCP Allergies [...] by oral route once daily at bedtime aspirin 81 mg oral tablet,chewable chew 1 [...] 30 minutes before breakfast for 90 days pantoprazole 40 mg oral tablet,delayed release (DR/EC) 02/24/2021 04/25/2021 take 1 tablet (40 mg) by oral route once daily for 30 days Name Start Date Expiration Date SIG Comments [...] medical attention is recommended for 30 days cyclobenzaprine oral tablet 5 mg 12/21/2020 01/20/2021 take 1 tablet (5 mg) by oral route once daily before bedtime Discontinued Name Start Date Discontinued Date SIG [...] CULT SET UP? NO 02/01/2020 8:38 AM [id number] NOT DETECTED History Of Immunizations Name Date [...] Date [place] CCN Optum [place] CCN Optum [id number] N/A [facility] [id number] AARP - Medicare Complete 9 [id number] N/A Aetna Aetna [id number] N/A WPS - VAPCCC - [place] [facility] [phone] N/A History of Encounters Visit Date Visit Type Provider 01/19/2021 Office visit CIERA CORRALES ASSOCIATE CURATOR 12/21/[address] Mina Blake MD 12/07/[address] Mina Blake MD 07/02/2020 Office visit CIERA CORRALES ASSOCIATE CURATOR 03/31/2020 Office visit Shay Batista MD 02/20/2020 Office visit Shay Batista MD 02/03/2020 Surgery Shay Batista MD 11/26/2019 Procedures Shay Batista MD 11/25/2019 Office visit Joshua Hernandez MD 11/21/2019 Office visit CIERA CORRALES ASSOCIATE CURATOR 11/14/2019 Surgery Joshua Hernandez MD 11/06/2019 Office visit Joshua Hernandez MD 10/24/2019 Office visit CIERA CORRALES ASSOCIATE CURATOR 08/21/2019 Office visit Shay Batista MD
--- NOTE | 2021-03-05 18:02 | ED Cough/URI ---
General Chief Complaint: Fever-Adult/Adol Stated Complaint: CHILLS/FEVER/TROUBLE URINATING Nursing Triage Note: PT PRESENTS TO ED WITH COMPLAINTS OF CHILLS STARTING YESTERDAY ALONG WITH DYSURIA AND WEAK STREAM. PT REPORTS FEVER STARTING TODAY AND STATES HE TOOK 500 ML TYLENOL AT 1630. Source: patient Exam Limitations: no limitations (MARTHA SOLIMAN MD) History of Present Illness Date Seen by Provider: Mar 05, 2021 Time Seen by Provider: 17:40 Initial Comments 70-year-old male with past medical history of CAD status post CABG, hypertension, hypothyroidism, and urethral stricture coming in due to 1 day of fever and cough that is nonproductive. Works at [employer] and is around a lot of people. Fully vaccinated for Covid with the Moderna vaccine finishing the series in August. Has a history of urethral stricture which she had lasered a while back by his urologist. He feels like he is having difficulty again urinating and feels like he could have a stricture again. Despite this, he feels like he is able to empty his bladder still. Otherwise denying any other acute complaints. (MARTHA SOLIMAN MD) Allergies and Home Medications Allergies Coded Allergies: No Known Drug Allergies (Unverified , 02/13/18) Patient Home Medication List Home Medication List Reviewed: Yes (MARTHA SOLIMAN MD) Acetaminophen (Tylenol Arthritis) 650 Mg Tablet.er, 650 MG PO Q8H PRN for PAIN- MILD, (Reported) Entered as Reported by: MYLES WHITT on 06/10/18 0336 Ascorbic Acid (Vitamin C) 1,000 Mg Tablet, 1,000 MG PO DAILY, (Reported) Entered as Reported by: HUANG DACOSTA on 02/13/18 1048 Aspirin (Aspir 81) 81 Mg Tablet.dr, 81 MG PO DAILY, (Reported) Entered as Reported by: HUANG DACOSTA on 02/13/18 1054 Carvedilol (Carvedilol) 6.25 Mg Tablet, 6.25 MG PO BID, (Reported) Entered as Reported by: LIDIA ROMANO on 08/04/20 0730 Ferrous Sulfate (Ferrous Sulfate) 325 Mg Tablet, 325 MG PO DAILY, (Reported) Entered as Reported by: ILDIA ROMANO on 08/04/20 0730 Furosemide (Furosemide) 20 Mg Tablet, 20 MG PO DAILY, (Reported) Entered as Reported by: MYLES WHITT on 06/10/18 0333 Lactobacillus Acidophilus (Probiotic Acidophilus) 1 Each Tablet, 1 EACH PO DAILY, (Reported) Entered as Reported by: HUANG DACOSTA on 02/13/18 1049 Levothyroxine Sodium (Levothyroxine Sodium) 112 Mcg Tablet, 224 MCG PO DAILY, (Reported) Entered as Reported by: LIDIA ROMANO on 08/04/20 07 Magnesium Oxide (Magnesium) 500 Mg Capsule, 500 MG PO HS, (Reported) Entered as Reported by: HUANG DACOSTA on 02/13/18 1045 Multivit-Min/FA/Lycopen/Lutein (Centrum Silver Men Tablet) 1 Each Tablet, 1 EACH PO DAILY, (Reported) Entered as Reported by: HUANG DACOSTA on 02/13/18 1046 Nitroglycerin (Nitroglycerin) 0.4 Mg Tab.subl, 0.4 MG SL PRN, (Reported) Entered as Reported by: HUANG DACOSTA on 02/13/18 1053 [place]-3 Fatty Acids/Fish Oil ([place] 3 1,000 mg Softgel) 1 Each Capsule, 1 EACH PO DAILY, (Reported) Entered as Reported by: HUANG DACOSTA on 02/13/18 1048 Pantoprazole Sodium (Pantoprazole Sodium) 40 Mg Tablet.dr, 40 MG PO DAILY, (Reported) Entered as Reported by: HUANG DACOSTA on 02/13/18 1053 Potassium Gluconate (Potassium) 99 Mg Tablet, 99 MG PO DAILY, (Reported) Entered as Reported by: HUANG DACOSTA on 02/13/18 1045 Rosuvastatin Calcium (Rosuvastatin Calcium) 20 Mg Tablet, 20 MG PO HS, (Reported) Entered as Reported by: LIDIA ROMANO on 08/04/20 07 Trazodone HCl (Trazodone HCl) 100 Mg Tablet, 100 MG PO HS, (Reported) Entered as Reported by: HUANG DACOSTA on 02/13/18 1052 [Fiber Laxative] , 3 CAP PO HS, (Reported) Entered as Reported by: LIDIA ROMANO on 08/04/20 07 Review of Systems Review of Systems Constitutional: chills, fever Respiratory: cough; No short of breath Cardiovascular: No chest pain Gastrointestinal: No abdominal pain, No nausea Genitourinary: No decreased output, No dysuria Musculoskeletal: no symptoms reported Skin: no symptoms reported Psychiatric/Neurological: No Symptoms Reported Hematologic/Lymphatic: No Symptoms Reported Immunological/Allergic: no symptoms reported (MARTHA SOLIMAN MD) All Other Systems Reviewed Negative Unless Noted: Yes (MARTHA SOLIMAN MD) Past Liemius-Tqhbhf-Zxjhml Hx Patient Social History Tobacco Use?: No Smoking Status: Never a Smoker Use of E-Cig and/or Vaping dev: No Substance use?: No Pt feels they are or have been: No (MARTHA SOLIMAN MD) Immunizations Up To Date Tetanus Booster (TDap): Unknown First/Initial COVID19 Vaccinat: august 2020 Second COVID19 Vaccination Kevin: august 2020 COVID19 Vaccine Rn Hospice: [facility] (MARTHA SOLIMAN MD) Seasonal Allergies Seasonal Allergies: No (MARTHA SOLIMAN MD) Past Medical History Surgery/Hospitalization HX: double bypass pmh: high chol, high bp, gerd, hypothyroid, cad Surgeries: Yes CABG, Thyroidectomy Respiratory: No Currently Using CPAP: No Currently Using BIPAP: No Cardiac: Yes Coronary Artery Disease, High Cholesterol Neurological: No Genitourinary: No Gastrointestinal: No Gastroesophageal Reflux Musculoskeletal: No Endocrine: Yes (THYROIDECTOMY) Cancer: No Psychosocial: No Integumentary: No Blood Disorders: No (MARTHA SOLIMAN MD) Family Medical History FH: emphysema 19 MOTHER FH: heart disease G8 SISTER Myocardial infarction Maternal Grandfather Physical Exam Vital Signs - First Documented 03/05/21 17:48 Temp 37.5 Pulse 107 Resp 18 B/P (MAP) 155/94 (114) Pulse Ox 93 (JEAN MARIE,JANELLE J) Capillary Refill : Less Than 3 Seconds (MARTHA SOLIMAN MD) Height: 5'7.00" Weight: 231lbs. 3.2oz. 104.056984dl; 35.00 BMI Method:Stated General Appearance: WD/WN, no apparent distress HEENT: PERRL/EOMI, normal ENT inspection, TMs normal, pharynx normal Neck: non-tender, full range of motion, supple, normal inspection Respiratory: chest non-tender, lungs clear, normal breath sounds, no respiratory distress, no accessory muscle use Cardiovascular: regular rate, rhythm, no edema, no murmur Gastrointestinal: normal bowel sounds, non tender, soft; No distended, No rebound Neurologic/Psychiatric: no motor/sensory deficits, alert, normal mood/affect Skin: normal color, warm/dry Lymphatic: no adenopathy (MARTHA SOLIMAN MD) Progress/Results/Core Measures Suspected Sepsis SIRS Temperature: Pulse: 107 Respiratory Rate: 18 Blood Pressure 155 /94 Mean: 114 (MARTHA SOLIMAN MD) Results/Orders Lab Results Laboratory Tests Test 03/05/21 17:48 03/05/21 18:00 Range/Units Urine Color YELLOW Urine Clarity SL CLOUDY Urine pH 7.0 5-9 Urine Specific [place] 1.010 L 1.016-1.022 Urine Protein TRACE H NEGATIVE Urine Glucose (UA) NEGATIVE NEGATIVE Urine Ketones 1+ H NEGATIVE Urine Nitrite NEGATIVE NEGATIVE Urine Bilirubin NEGATIVE NEGATIVE Urine Urobilinogen 0.2 < = 1.0 MG/DL Urine Leukocyte Esterase 2+ H NEGATIVE Urine RBC (Auto) TRACE-I NEGATIVE Urine RBC 2-5 H /HPF Urine WBC 10-25 H /HPF Urine Squamous Epithelial Cells NONE /HPF Urine Renal Epithelial Cells NONE /HPF Urine Crystals NONE /LPF Urine Bacteria NEGATIVE /HPF Urine Casts NONE /LPF Urine Mucus NEGATIVE /LPF Urine Culture Indicated YES (JANELLE AJ) Vital Signs/I&O 03/05/21 17:48 Temp 37.5 Pulse 107 Resp 18 B/P (MAP) 155/94 (114) Pulse Ox 93 (JANELLE AJ) Vital Signs/I&O Capillary Refill : Less Than 3 Seconds (MARTHA SOLIMAN MD) Blood Pressure Mean: 114 Progress Note : Progress Note Well-appearing 70-year-old man coming in due to 1 day of fever and cough as well as some difficulty urinating but still feeling like he is emptying his bladder. ABCs were intact and vitals were stable on presentation although he is mildly tachycardic. He states he just had a fever prior to arrival and took some Tylenol. Physical exam reassuring including no suprapubic tenderness and clear lung sounds. I did a oqwck-gw-vybd ultrasound which showed less than 40 cc of urine so he is not retaining. Covid test as well as UA ordered. No signs of pneumonia so chest x-ray would not be ordered. He is overall very well- appearing and tolerating p.o. and I do not believe other labs are necessary at this time. Discharge pending the urinalysis. Signed out to the oncoming physician. (MARTHA SOLIMAN MD) Progress Note : Time: 18:53 Progress Note Assumed care of the patient at shift change. A gram of Rocephin IV was ordered for his complicated UTI. We will put him out on third-generation cephalosporins for 7 days. (JANELLE AJ) Departure Impression Primary Impression: Person under investigation for COVID-19 Additional Impressions: Urethral stricture Qualified Codes: N35.919 - Unspecified urethral stricture, male, unspecified site UTI (urinary tract infection) Qualified Codes: N30.01 - Acute cystitis with hematuria Disposition: HOME, SELF-CARE Condition: Stable Departure-Patient Inst. Decision time for Depature: 18:55 (JANELLE AJ) Referrals: MARQIUSE JONES MD (PCP/Family) Primary Care Physician Patient Instructions: COVID-19 (DC), Urinary Tract Infection, Adult ED Add. Discharge Instructions: He was seen in the emergency department for fever and cough as well as difficulty urinating. He did not have a large amount of urine in your bladder, and this means that you are still able to empty it. However, I do recommend you follow-up with your urologist, because you likely do have a stricture and need to have this fixed before you start retaining urine. If you ever are unable to urinate and have pain in your lower abdomen then you need to come to the ER. Your Covid test will take about a day to come back. Isolate until then. Tylenol and ibuprofen are okay for fever. Drink plenty of fluids. If you begin feeling very short of breath or have any concerns then come back to the ER for that as well. Cefdinir 1 capsule with food twice a day for the next week. All discharge instructions reviewed with patient and/or family. Voiced understanding. Scripts Cefdinir (Cefdinir) 300 Mg Capsule 300 MG PO BID for 7 Days, #14 CAP 0 Refills Prov: JANELLE AJ 03/05/21 MARTHA SOLIMAN MD Mar 05, 2021 18:01 JANELLE AJ Mar 05, 2021 18:56
[2021-03-05 18:42] LABS: BILIRUBIN,URINE NEGATIVE (NEGATIVE); CLARITY,URINE SL CLOUDY; COLOR,URINE YELLOW; GLUCOSE, URINE (UA) NEGATIVE (NEGATIVE); KETONES,URINE 1+ (NEGATIVE); LEUKOCYTE ESTERASE ,URINE 2+ (NEGATIVE); NITRITE,URINE NEGATIVE (NEGATIVE); PROTEIN,URINE TRACE (NEGATIVE)
[2021-03-05 18:49] LABS: BACTERIA,URINE NEGATIVE /HPF
[2021-03-05] MEDS ORDERED: CEFD300C3 PO (18:56)
[2021-03-05] MEDS ORDERED: cefTRIAXone 1,000 MG in WATER (STERILE) FOR INJECTION 10 ML IV STA (18:57)
[2021-03-05] MEDS ORDERED: cefTRIAXone 1,000 MG VIAL IM ONE (19:00)
[2021-03-05] MEDS ORDERED: LIDOCAINE 1% INJ 20 ML 20 ML VIAL INJ ONE (19:00)
[2021-03-05 19:29] VITALS: BP 157/88
== END 2021-03-05 19:29 | disposition home or self-care (01) ==
LOC: EDUNIT# 17:31 → ER 17:34
DX: N35.919 Unspecified urethral stricture, male, unspecified site (principal); N39.0 Urinary tract infection, site not specified; E78.00 Pure hypercholesterolemia, unspecified; I25.10 Atherosclerotic heart disease of native coronary artery without angina pectoris; K21.9 Gastro-esophageal reflux disease without esophagitis; I10 Essential (primary) hypertension; E03.9 Hypothyroidism, unspecified; Z95.1 Presence of aortocoronary bypass graft; Z20.822 Contact with and (suspected) exposure to COVID-19; Z79.899 Other long term (current) drug therapy; Z79.82 Long term (current) use of aspirin; Z79.890 Hormone replacement therapy
CPT/HCPCS: 81000; 87077; 87088; 87186; 87635; 99283

== ENCOUNTER → 2021-07-06 | Outpatient (CLI) | payer OTHER ==
[~2021-07-06] VITALS: Ht 170 cm; Wt 103.0 kg
[~2021-07-06] MED LIST changes: +CEFD300C3 PO; -POTA99TA21 PO; +POTA99TA26 PO; +REGADENOSON 0.4 MG/5 ML SYR (LEXISCAN) IV ONE; +RT-ALBUTEROL SULF 2.5 MG/3 ML PRE-MIX VIAL INH ONE
[2021-07-06] MEDS: CATHETER FLUSH 10 ML SYR IV PRN ×2 (07:13→08:50)
[2021-07-06 08:45] VITALS: BP 143/95
--- NOTE | 2021-07-07 11:54 | STRESS TEST ---
DATE OF SERVICE: 07/06/2021 RESTING AND POST REGADENOSON TECHNETIUM-99M TETROFOSMIN SPECT CT IMAGING Baseline images were carried out after injection of 10.79 mCi of technetium-99m Tetrofosmin. This was followed by 0.4 mg of Regadenoson and 28.2 mCi of technetium-99m Tetrofosmin for stress imaging. The electrocardiogram showed sinus rhythm at baseline. It did not change significantly with the Regadenoson infusion. The patient tolerated the procedure well. Review of images at rest and following stress does not indicate any distinct perfusion defects consistent with significant myocardial ischemia or infarction. Gated images show normal global left ventricular systolic function with normal regional wall motion. Left ventricular ejection fraction is calculated to be 65%. Left ventricular end-diastolic volume is 59 mL. TID is absent (0.95). CONCLUSIONS: 1. No evidence of any significant myocardial ischemia or infarction study. 2. Normal regional wall motion. 3. Normal global left ventricular systolic function with a calculated ejection fraction of 65%. Job ID: [id number] DocumentID: [id number] Dictated Date: 07/07/2021 09:46:40 Customer Success Representative Date: 07/07/2021 11:53:32 Dictated By: MORGAN ARIAS MD, MA, FACP, FACC,
== END ==
LOC: CARD 07:30
PROVIDERS: ATTEND Internal Medicine Cardiovascular Disease
DX: R06.09 Other forms of dyspnea (principal)
CPT/HCPCS: 78452; 93017; 94060; 94726; 94729

== ENCOUNTER 2021-10-28 22:48 | Emergency (ER) | payer OTHER ==
[~2021-10-28 22:48] MED LIST changes: -REGADENOSON 0.4 MG/5 ML SYR (LEXISCAN) IV ONE; -RT-ALBUTEROL SULF 2.5 MG/3 ML PRE-MIX VIAL INH ONE
[2021-10-28] MEDS ORDERED: ONDANSETRON 4 MG/2 ML (SDV) Z0FRAN IVP ONE (23:00)
[2021-10-28] MEDS ORDERED: LACTATED RINGERS 1,000 ML IV ONE (23:00)
[2021-10-28 23:04] LABS: BASOPHILS % (AUTO) 0 % (0-10); EOSINOPHILS # (AUTO) 0.1 10^3/uL (0.0-0.3); EOSINOPHILS % (AUTO) 1 % (0-10); HEMATOCRIT 46 % (40-54); HEMOGLOBIN 15.5 g/dL (13.3-17.7); LYMPHOCYTES # (AUTO) 0.3 10^3/uL (1.0-4.0); LYMPHOCYTES % (AUTO) 3 % (12-44); MEAN CORPUSCULAR HEMOGLOBIN 31 pg (25-34); MEAN CORPUSCULAR HGB CONC 34 g/dL (32-36); MEAN CORPUSCULAR VOLUME 92 fL (80-99); MEAN PLATELET VOLUME 11.4 fL (9.0-12.2); MONOCYTES # (AUTO) 0.4 10^3/uL (0.0-1.0); MONOCYTES % (AUTO) 5 % (0-12); NEUTROPHILS # (AUTO) 8.8 10^3/uL (1.8-7.8); NEUTROPHILS % (AUTO) 91 % (42-75); PLATELET COUNT 191 10^3/uL (130-400); WHITE BLOOD COUNT 9.7 10^3/uL (4.3-11.0)
[2021-10-28 23:14] LABS: LYMPHOCYTES % (MANUAL) 3 %; MONOCYTES % (MANUAL) 2 %; NEUTROPHILS % (MANUAL) 95 %; RBC MORPH NORMAL
[2021-10-28 23:21] LABS: ALBUMIN 4.1 GM/DL (3.2-4.5); CHLORIDE 104 MMOL/L (98-107); POTASSIUM 3.8 MMOL/L (3.6-5.0); SODIUM 138 MMOL/L (135-145)
[2021-10-28 23:22] LABS: CALCIUM 8.8 MG/DL (8.5-10.1)
[2021-10-28 23:23] LABS: AMYLASE 52 U/L (25-125)
[2021-10-28 23:24] LABS: GLUCOSE 183 MG/DL (70-105)
[2021-10-28 23:25] LABS: BILIRUBIN,TOTAL 0.9 MG/DL (0.1-1.0); CARBON DIOXIDE 20 MMOL/L (21-32)
[2021-10-28 23:27] LABS: ALKALINE PHOSPHATASE 72 U/L (40-136); GFR ESTIMATED 59
[2021-10-28 23:28] LABS: BUN/CREATININE RATIO 17
[2021-10-28 23:30] LABS: ALANINE AMINOTRANSFERASE 48 U/L (0-55); MAGNESIUM 1.7 MG/DL (1.6-2.4)
[2021-10-28 23:31] LABS: LIPASE 27 U/L (8-78)
[2021-10-29] MEDS ORDERED: LACTATED RINGERS 1,000 ML IV ONE (00:15)
[2021-10-29 00:29] LABS: CLARITY,URINE CLEAR; COLOR,URINE YELLOW; GLUCOSE, URINE (UA) NEGATIVE (NEGATIVE); KETONES,URINE TRACE (NEGATIVE); LEUKOCYTE ESTERASE ,URINE NEGATIVE (NEGATIVE); NITRITE,URINE NEGATIVE (NEGATIVE); PH,URINE 5.5 (5-9); PROTEIN,URINE 2+ (NEGATIVE)
[2021-10-29 00:39] LABS: BACTERIA,URINE TRACE /HPF
[2021-10-29 00:48] LABS: BILIRUBIN,URINE 1+ (NEGATIVE)
[2021-10-29] MEDS ORDERED: RX-ONDANSETRON 4 MG ODT (ZOFRAN) PPK #4 PO STA (01:23)
[2021-10-29] MEDS ORDERED: ONDA4TAB11 PO (01:25)
--- NOTE | 2021-10-29 01:25 | ED GI ---
General Chief Complaint: Abdominal/GI Problems Stated Complaint: POSSIBLE FOOD POISONING Allergies and Home Medications Allergies Coded Allergies: No Known Drug Allergies (Unverified , 02/13/18) Patient Home Medication List Acetaminophen (Tylenol Arthritis) 650 Mg Tablet.er, 650 MG PO Q8H PRN for PAIN- MILD, (Reported) Entered as Reported by: MYLES WHITT on 06/10/18 0336 Ascorbic Acid (Vitamin C) 1,000 Mg Tablet, 1,000 MG PO DAILY, (Reported) Entered as Reported by: HUANG DACOSTA on 02/13/18 1048 Aspirin (Aspir 81) 81 Mg Tablet.dr, 81 MG PO DAILY, (Reported) Entered as Reported by: HUANG DACOSTA on 02/13/18 1054 Carvedilol (Carvedilol) 6.25 Mg Tablet, 6.25 MG PO BID, (Reported) Entered as Reported by: LIDIA ROMANO on 08/04/20 0730 Cefdinir (Cefdinir) 300 Mg Capsule, 300 MG PO BID Prescribed by: JANELLE AJ on 03/05/21 1856 Ferrous Sulfate (Ferrous Sulfate) 325 Mg Tablet, 325 MG PO DAILY, (Reported) Entered as Reported by: LIDIA ROMANO on 08/04/20 0730 Furosemide (Furosemide) 20 Mg Tablet, 20 MG PO DAILY, (Reported) Entered as Reported by: MYLES WHITT on 06/10/18 0333 Lactobacillus Acidophilus (Probiotic Acidophilus) 1 Each Tablet, 1 EACH PO DAILY, (Reported) Entered as Reported by: HUANG DACOSTA on 02/13/18 1049 Levothyroxine Sodium (Levothyroxine Sodium) 112 Mcg Tablet, 224 MCG PO DAILY, (Reported) Entered as Reported by: LIDIA ROMANO on 08/04/20 0730 Magnesium Oxide (Magnesium) 500 Mg Capsule, 500 MG PO HS, (Reported) Entered as Reported by: HUANG DACOSTA on 02/13/18 1045 Multivit-Min/FA/Lycopen/Lutein (Centrum Silver Men Tablet) 1 Each Tablet, 1 EACH PO DAILY, (Reported) Entered as Reported by: HUANG DACOSTA on 02/13/18 1046 Nitroglycerin (Nitroglycerin) 0.4 Mg Tab.subl, 0.4 MG SL PRN, (Reported) Entered as Reported by: HUANG DACOSTA on 02/13/18 1053 [place]-3 Fatty Acids/Fish Oil ([place] 3 1,000 mg Softgel) 1 Each Capsule, 1 EACH PO DAILY, (Reported) Entered as Reported by: HUANG DACOSTA on 02/13/18 1048 Pantoprazole Sodium (Pantoprazole Sodium) 40 Mg Tablet.dr, 40 MG PO DAILY, (Reported) Entered as Reported by: HUANG DACOSTA on 02/13/18 1053 Potassium Gluconate (Potassium) 99 Mg Tablet, 99 MG PO DAILY, (Reported) Entered as Reported by: HUANG DACOSTA on 02/13/18 1045 Rosuvastatin Calcium (Rosuvastatin Calcium) 20 Mg Tablet, 20 MG PO HS, (Reported) Entered as Reported by: LIDIA ROMANO on 08/04/20 0730 Trazodone HCl (Trazodone HCl) 100 Mg Tablet, 100 MG PO HS, (Reported) Entered as Reported by: HUANG DACOSTA on 02/13/18 1052 [Fiber Laxative] , 3 CAP PO HS, (Reported) Entered as Reported by: LIDIA ROMANO on 08/04/20 0730 Past Ervxrbg-Gpuayt-Ngvrve Hx Immunizations Up To Date Tetanus Booster (TDap): Unknown First/Initial COVID19 Vaccinat: august 2020 Second COVID19 Vaccination Kevin: august 2020 Seasonal Allergies Seasonal Allergies: No Past Medical History Surgery/Hospitalization HX: double bypass pmh: high chol, high bp, gerd, hypothyroid, cad Surgeries: Yes CABG, Thyroidectomy Respiratory: No Currently Using CPAP: No Currently Using BIPAP: No Cardiac: Yes Coronary Artery Disease, High Cholesterol Neurological: No Genitourinary: No Gastrointestinal: No Gastroesophageal Reflux Musculoskeletal: No Endocrine: Yes (THYROIDECTOMY) Cancer: No Psychosocial: No Integumentary: No Blood Disorders: No Family Medical History FH: emphysema 19 MOTHER FH: heart disease G8 SISTER Myocardial infarction Maternal Grandfather Physical Exam Vital Signs Capillary Refill : Height/Weight/BMI Height: 5'7.00" Weight: 231lbs. 3.2oz. 104.702875ut; 35.64 BMI Method:Stated Progress/Results/Core Measures Results/Orders Lab Results Laboratory Tests Test 10/28/21 00:12 10/28/21 22:55 Range/Units Urine Color YELLOW Urine Clarity CLEAR Urine pH 5.5 5-9 Urine Specific [place] 1.025 H 1.016-1.022 Urine Protein 2+ H NEGATIVE Urine Glucose (UA) NEGATIVE NEGATIVE Urine Ketones TRACE H NEGATIVE Urine Nitrite NEGATIVE NEGATIVE Urine Bilirubin 1+ H NEGATIVE Urine Urobilinogen 1.0 < = 1.0 MG/DL Urine Leukocyte Esterase NEGATIVE NEGATIVE Urine RBC (Auto) NEGATIVE NEGATIVE Urine RBC NONE /HPF Urine WBC NONE /HPF Urine Crystals NONE /LPF Urine Bacteria TRACE /HPF Urine Casts PRESENT /LPF Urine Hyaline Casts 10-25 H /LPF Urine Mucus SMALL H /LPF Urine Culture Indicated NO White Blood Count 9.7 4.3-11.0 10^3/uL Red Blood Count 5.00 4.30-5.52 10^6/uL Hemoglobin 15.5 13.3-17.7 g/dL Hematocrit 46 40-54 % Mean Corpuscular Volume 92 80-99 fL Mean Corpuscular Hemoglobin 31 25-34 pg Mean Corpuscular Hemoglobin Concent 34 32-36 g/dL Red Cell Distribution Width 12.4 10.0-14.5 % Platelet Count 191 130-400 10^3/uL Mean Platelet Volume 11.4 9.0-12.2 fL Immature Granulocyte % (Auto) 0 % Neutrophils (%) (Auto) 91 H 42-75 % Lymphocytes (%) (Auto) 3 L 12-44 % Monocytes (%) (Auto) 5 0-12 % Eosinophils (%) (Auto) 1 0-10 % Basophils (%) (Auto) 0 0-10 % Neutrophils # (Auto) 8.8 H 1.8-7.8 10^3/uL Lymphocytes # (Auto) 0.3 L 1.0-4.0 10^3/uL Monocytes # (Auto) 0.4 0.0-1.0 10^3/uL Eosinophils # (Auto) 0.1 0.0-0.3 10^3/uL Basophils # (Auto) 0.0 0.0-0.1 10^3/uL Immature Granulocyte # (Auto) 0.0 0.0-0.1 10^3/uL Neutrophils % (Manual) 95 % Lymphocytes % (Manual) 3 % Monocytes % (Manual) 2 % Blood Morphology Comment NORMAL Sodium Level 138 135-145 MMOL/L Potassium Level 3.8 3.6-5.0 MMOL/L Chloride Level 104 98-107 MMOL/L Carbon Dioxide Level 20 L 21-32 MMOL/L Anion Gap 14 5-14 MMOL/L Blood Urea Nitrogen 22 H 7-18 MG/DL Creatinine 1.30 0.60-1.30 MG/DL Estimat Glomerular Filtration Rate 59 BUN/Creatinine Ratio 17 Glucose Level 183 H 70-105 MG/DL Calcium Level 8.8 8.5-10.1 MG/DL Corrected Calcium 8.7 8.5-10.1 MG/DL Magnesium Level 1.7 1.6-2.4 MG/DL Total Bilirubin 0.9 0.1-1.0 MG/DL Aspartate Amino Transf (AST/SGOT) 39 H 5-34 U/L Alanine Aminotransferase (ALT/SGPT) 48 0-55 U/L Alkaline Phosphatase 72 40-136 U/L Total Protein 7.0 6.4-8.2 GM/DL Albumin 4.1 3.2-4.5 GM/DL Amylase Level 52 25-125 U/L Lipase 27 8-78 U/L Serum Alcohol < 10 <10 MG/DL Influenza Type A (RT-PCR) Not Detected Not Detecte Influenza Type B (RT-PCR) Not Detected Not Detecte SARS-CoV-2 RNA (RT-PCR) Not Detected Not Detecte My Orders Orders - SMITHA HOFF DO Ed Iv/Invasive Line Start (10/28/21 22:51) Monitor-Rhythm Ecg Trace Only (10/28/21 22:51) Alcohol (10/28/21 22:51) Amylase (10/28/21 22:51) Cbc With Automated Diff (10/28/21 22:51) Comprehensive Metabolic Panel (10/28/21 22:51) Drug Screen Stat (Urine) (10/28/21 22:51) Lipase (10/28/21 22:51) Magnesium (10/28/21 22:51) Ua Culture If Indicated (10/28/21 22:51) Ed Iv/Invasive Line Start (10/28/21 22:51) Covid 19 Inhouse Test (10/28/21 22:51) Isolation Central Supply Req (10/28/21 22:51) Lactated Ringers (Lr 1000 Ml Iv Solution (10/28/21 23:00) Ondansetron Injection (Zofran Injectio (10/28/21 23:00) Influenza A And B By Pcr (10/28/21 22:51) Manual Differential (10/28/21 22:55) Ct Abdomen/Pelvis Wo (10/28/21 23:30) Acute Abd Series (10/29/21 00:01) Ed Iv/Invasive Line Start (10/29/21 00:13) Lactated Ringers (Lr 1000 Ml Iv Solution (10/29/21 00:15) Medications Given in ED Current Medications Medications Dose Ordered Sig/Thomas Route Start Time Stop Time Status Last Admin Dose Admin Lactated Ringer's 1,000 ml @ 0 mls/hr Q0M ONCE IV 10/28/21 23:00 10/28/21 23:01 DC 10/28/21 23:26 1,000 MLS/HR Lactated Ringer's 1,000 ml @ 0 mls/hr Q0M ONCE IV 10/29/21 00:15 10/29/21 00:16 DC 10/29/21 00:41 1,000 MLS/HR Ondansetron HCl 4 mg ONCE ONCE IVP 10/28/21 23:00 10/28/21 23:01 DC 10/28/21 23:26 4 MG Departure Impression Primary Impression: Gastroenteritis Disposition: HOME, SELF-CARE Condition: Improved Departure-Patient Inst. Decision time for Depature: 01:24 Referrals: MARQUISE JONES MD (PCP/Family) Primary Care Physician Patient Instructions: [id number] Add. Discharge Instructions: CLEAR LIQUIDS--WATER, BROTH, JELLO, GATORADE TOMORROW IF YOU ARE BETTER, ADD BRATS DIET TO CLEAR LIQUIDS--BANANAS, RICE, APPLESAUCE, TOAST, SALTINES FOLLOW UP WITH YOUR DR TOMORROW IF NO BETTER, RETURN TO ER IF WORSE All discharge instructions reviewed with patient and/or family. Voiced understanding. Scripts Ondansetron (Ondansetron Odt) 4 Mg Tab.rapdis 4 MG PO Q4H for Nausea/Vomiting, #10 TAB Prov: SMITHA HOFF DO 10/29/21 SMITHA HOFF DO October 29, 2021 01:25
[2021-10-29 01:30] VITALS: BP 123/62
--- NOTE | 2021-10-29 06:25 | Diagnostic Imaging Report ---
PROCEDURE: CT abdomen and pelvis without contrast. TECHNIQUE: Multiple contiguous axial images were obtained through the abdomen and pelvis without the use of intravenous contrast. Auto Exposure Controls were utilized during the CT exam to meet ALARA standards for radiation dose reduction. INDICATION: Nausea, abdominal pain. COMPARISON: None. FINDINGS: The lung bases are clear. There is recanalization of the umbilical vein suspicious for cirrhosis and portal hypertension. There is slight splenomegaly. No obvious large varices are seen on this series. Gallbladder, additional solid organs, vascular structures and small bowel normal. There are few diverticula of the sigmoid colon without diverticulitis. There is no free air or free fluid. No lymphadenopathy identified. The urinary bladder and prostate are grossly unremarkable. No hernia is seen. Osseous structures are age-appropriate. IMPRESSION: 1. Suspect cirrhotic liver. No ascites. 2. Diverticulosis sigmoid colon without diverticulitis. Dictated by: Dictated on workstation # [id number]
--- NOTE | 2021-10-29 06:50 | Diagnostic Imaging Report ---
INDICATION: Abdominal pain FINDINGS: Acute abdominal series demonstrates normal chest. No free air under the diaphragm. There is no significant constipation. There is no obstruction. Sternal wires are midline. Osseous structures are unremarkable. IMPRESSION: Negative acute abdominal series. Dictated by: Dictated on workstation # [id number]
== END 2021-10-29 01:39 | disposition home or self-care (01) ==
LOC: EDUNIT# 22:48 → ER 22:51
DX: K52.9 Noninfective gastroenteritis and colitis, unspecified (principal); Z20.822 Contact with and (suspected) exposure to COVID-19
CPT/HCPCS: 36415; 74022; 74176; 80053; 80320; 81000; 82150; 83690; 83735; 85007; 85027; 87636

== ENCOUNTER 2022-03-12 20:44 | Emergency (ER) | payer OTHER ==
[~2022-03-12] VITALS: Ht 67 cm; Wt 105.0 kg
[~2022-03-12 20:44] MED LIST changes: +ONDA4TAB11 PO
--- NOTE | 2022-03-12 21:22 | ED Lower Extremity ---
General Chief Complaint: Lower Extremity Stated Complaint: LEFT LOWER LEG PAIN Nursing Triage Note: PT was washing car earlier today and using a ladder to help wash his car. PT was stepping of ladder, PT states he started having some left calf pain/cramps. PT states the pain now radiates to foot and is at a 6-10. Source: patient Exam Limitations: no limitations History of Present Illness Date Seen by Provider: Mar 12, 2022 Time Seen by Provider: 21:08 Initial Comments Patient to the ER by private conveyance with chief complaint that about 11 AM this morning he was washing his car and stepped down and felt a twinge of pain that has progressively gotten worse in his left posterior calf. He did not injure his leg. It is not any better despite Tylenol and ibuprofen. 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 He is not on any blood thinners. He is not having any chest pain or shortness of air. He is concerned about a DVT. He is not having any redness, fevers chills or cough. Allergies and Home Medications Allergies Coded Allergies: No Known Drug Allergies (Unverified , 02/13/18) Patient Home Medication List Home Medication List Reviewed: Yes Acetaminophen (Tylenol Arthritis) 650 Mg Tablet.er, 650 MG PO Q8H PRN for PAIN- MILD, (Reported) Entered as Reported by: MYLES WHITT on 06/10/18 0336 Ascorbic Acid (Vitamin C) 1,000 Mg Tablet, 1,000 MG PO DAILY, (Reported) Entered as Reported by: HUANG DACOSTA on 02/13/18 1048 Aspirin (Aspir 81) 81 Mg Tablet.dr, 81 MG PO DAILY, (Reported) Entered as Reported by: HUANG DACOSTA on 02/13/18 1054 Carvedilol (Carvedilol) 6.25 Mg Tablet, 6.25 MG PO BID, (Reported) Entered as Reported by: LIDIA ROMANO on 08/04/20 0730 Cefdinir (Cefdinir) 300 Mg Capsule, 300 MG PO BID Prescribed by: JANELLE AJ on 03/05/21 1856 Ferrous Sulfate (Ferrous Sulfate) 325 Mg Tablet, 325 MG PO DAILY, (Reported) Entered as Reported by: LIDIA ROMANO on 08/04/20 0730 Furosemide (Furosemide) 20 Mg Tablet, 20 MG PO DAILY, (Reported) Entered as Reported by: MYLES WHITT on 06/10/18 0333 Lactobacillus Acidophilus (Probiotic Acidophilus) 1 Each Tablet, 1 EACH PO DAILY, (Reported) Entered as Reported by: HUANG DACOSTA on 02/13/18 1049 Levothyroxine Sodium (Levothyroxine Sodium) 112 Mcg Tablet, 224 MCG PO DAILY, (Reported) Entered as Reported by: LIDIA ROMANO on 08/04/20 0730 Magnesium Oxide (Magnesium) 500 Mg Capsule, 500 MG PO HS, (Reported) Entered as Reported by: HUANG DACOSTA on 02/13/18 1045 Multivit-Min/FA/Lycopen/Lutein (Centrum Silver Men Tablet) 1 Each Tablet, 1 EACH PO DAILY, (Reported) Entered as Reported by: HUANG DACOSTA on 02/13/18 1046 Nitroglycerin (Nitroglycerin) 0.4 Mg Tab.subl, 0.4 MG SL PRN, (Reported) Entered as Reported by: HUANG DACOSTA on 02/13/18 1053 [place]-3 Fatty Acids/Fish Oil ([place] 3 1,000 mg Softgel) 1 Each Capsule, 1 EACH PO DAILY, (Reported) Entered as Reported by: HUANG DACOSTA on 02/13/18 1048 Ondansetron (Ondansetron Odt) 4 Mg Tab.rapdis, 4 MG PO Q4H Prescribed by: SMITHA HOFF on 10/29/21 0125 Pantoprazole Sodium (Pantoprazole Sodium) 40 Mg Tablet.dr, 40 MG PO DAILY, (Reported) Entered as Reported by: HUANG DACOSTA on 02/13/18 1053 Potassium Gluconate (Potassium) 99 Mg Tablet, 99 MG PO DAILY, (Reported) Entered as Reported by: HUANG DACOSTA on 02/13/18 1045 Rosuvastatin Calcium (Rosuvastatin Calcium) 20 Mg Tablet, 20 MG PO HS, (Reported) Entered as Reported by: LIDIA ROMANO on 08/04/20 0730 Trazodone HCl (Trazodone HCl) 100 Mg Tablet, 100 MG PO HS, (Reported) Entered as Reported by: HUANG ADCOSTA on 02/13/18 1052 [Fiber Laxative] , 3 CAP PO HS, (Reported) Entered as Reported by: LIDIA ROMANO on 08/04/20 0730 Review of Systems Constitutional: No chills, No fever EENTM: No ear discharge, No ear pain Respiratory: No cough, No short of breath Cardiovascular: see HPI; No chest pain, No edema Gastrointestinal: No abdominal pain, No nausea, No vomiting Genitourinary: No discharge, No dysuria Musculoskeletal: see HPI; No back pain, No joint pain All Other Systems Reviewed Negative Unless Noted: Yes Past Ghqgwze-Wxvkpn-Vypqvf Hx Patient Social History Tobacco Use?: No Use of E-Cig and/or Vaping dev: No Substance use?: No Alcohol Use?: Yes Alcohol type: Beer Alcohol Frequency: Rarely Immunizations Up To Date Tetanus Booster (TDap): Unknown First/Initial COVID19 Vaccinat: august 2020 Second COVID19 Vaccination Kevin: SEPTEMBER 2020 Third COVID19 Vaccination Date: YES Seasonal Allergies Seasonal Allergies: No Past Medical History Surgery/Hospitalization HX: double bypass pmh: high chol, high bp, gerd, hypothyroid, cad Surgeries: Yes Cardiac, CABG, Joint Replacement, Orthopedic, Thyroidectomy Respiratory: No Currently Using CPAP: No Currently Using BIPAP: No Cardiac: Yes (2 VESSEL CABG 2017) Coronary Artery Disease, High Cholesterol, Hypertension Neurological: No Genitourinary: No Gastrointestinal: Yes Gastroesophageal Reflux, Diverticulosis Musculoskeletal: Yes (LEFT TOTAL KNEE REPLACEMENT 2013) Arthritis Endocrine: Yes (THYROIDECTOMY IN THE S FOR BENIGN DISEASE) Hypothyroidsim Cancer: No Psychosocial: No Integumentary: No Blood Disorders: No Family Medical History FH: emphysema 19 MOTHER FH: heart disease G8 SISTER Myocardial infarction Maternal Grandfather PAST SURGICAL HISTORY: -THYROIDECTOMY IN THE S FOR BENIGN DISEASE -LEFT TOTAL KNEE REPLACEMENT 2013 -2 VESSEL CABG 2017 Physical Exam Vital Signs Vital Signs - First Documented 03/12/22 20:52 Temp 36.6 Pulse 79 Resp 18 B/P (MAP) 145/88 (107) Pulse Ox 96 O2 Delivery Room Air Capillary Refill : Less Than 3 Seconds Height, Weight, BMI Height: 5'7.00" Weight: 231lbs. 3.2oz. [id number]; 233.00 BMI Method:Stated General Appearance: WD/WN, no apparent distress HEENT: PERRL/EOMI, pharynx normal Neck: non-tender, full range of motion, normal inspection Cardiovascular: normal peripheral pulses, regular rate, rhythm Respiratory: no respiratory distress, no accessory muscle use Legs: right leg non-tender, right leg normal inspection; bilateral leg normal range of motion; right leg no evidence of injury; left leg pain, left leg soft tissue tenderness, left leg swelling (Significantly swollen compared to right. Tenderness in the posterior calf with positive Homans' sign) Knees: bilateral knee non-tender, bilateral knee normal inspection, bilateral knee normal range of motion, bilateral knee no evidence of injury Neurologic/Psychiatric: alert, normal mood/affect, oriented x 3 Skin: normal color, warm/dry Progress/Results/Core Measures Results/Orders Lab Results Laboratory Tests Test 03/12/22 21:27 Range/Units White Blood Count 5.4 4.3-11.0 10^3/uL Red Blood Count 4.37 4.30-5.52 10^6/uL Hemoglobin 13.8 13.3-17.7 g/dL Hematocrit 41 40-54 % Mean Corpuscular Volume 93 80-99 fL Mean Corpuscular Hemoglobin 32 25-34 pg Mean Corpuscular Hemoglobin Concent 34 32-36 g/dL Red Cell Distribution Width 12.8 10.0-14.5 % Platelet Count 169 130-400 10^3/uL Mean Platelet Volume 10.3 9.0-12.2 fL Immature Granulocyte % (Auto) 0 % Neutrophils (%) (Auto) 55 42-75 % Lymphocytes (%) (Auto) 29 12-44 % Monocytes (%) (Auto) 10 0-12 % Eosinophils (%) (Auto) 4 0-10 % Basophils (%) (Auto) 1 0-10 % Neutrophils # (Auto) 3.0 1.8-7.8 10^3/uL Lymphocytes # (Auto) 1.6 1.0-4.0 10^3/uL Monocytes # (Auto) 0.6 0.0-1.0 10^3/uL Eosinophils # (Auto) 0.2 0.0-0.3 10^3/uL Basophils # (Auto) 0.0 0.0-0.1 10^3/uL Immature Granulocyte # (Auto) 0.0 0.0-0.1 10^3/uL Prothrombin Time 13.5 12.2-14.7 SEC INR Comment 1.0 0.8-1.4 D-Dimer 0.74 H 0.00-0.49 UG/ML Sodium Level 137 135-145 MMOL/L Potassium Level 3.9 3.6-5.0 MMOL/L Chloride Level 104 98-107 MMOL/L Carbon Dioxide Level 25 21-32 MMOL/L Anion Gap 8 5-14 MMOL/L Blood Urea Nitrogen 18 7-18 MG/DL Creatinine 0.97 0.60-1.30 MG/DL Estimat Glomerular Filtration Rate 84 BUN/Creatinine Ratio 19 Glucose Level 108 H 70-105 MG/DL Calcium Level 9.0 8.5-10.1 MG/DL My Orders Orders - JANELLE AJ Protime With Inr (03/12/22 21:17) Cbc With Automated Diff (03/12/22 21:17) Basic Metabolic Panel (03/12/22 21:17) Fibrin Degradation Products (03/12/22 21:17) Cervical Spine 3 Views Or Less (03/12/22 21:58) Thoracic Spine, 2 Views Only (03/12/22 21:58) Lumbar Spine - 2-3 Views (03/12/22 21:58) Enoxaparin Injection (Lovenox Injection) (03/12/22 22:15) Vital Signs/I&O 03/12/22 03/12/22 20:52 22:20 Temp 36.6 Pulse 79 71 Resp 18 B/P (MAP) 145/88 (107) 130/82 Pulse Ox 96 96 O2 Delivery Room Air Blood Pressure Mean: 107 Progress Progress Note : Time: 21:22 Progress Note Significant concern for DVT. We will get a D-dimer and some basic labs. We do not have ultrasound available at this time but we can dose him with Lovenox or Eliquis and follow-up for an ultrasound outpatient. Diagnostic Imaging Diagonstic Imaging: Ultrasound Comments [facility]. [place], [place] NAME: ERIKA PAINTING [facility] REC#: [id number] PT STATUS: REG CLI : 1950 PHYSICIAN: JANELLE AJ MD ADMIT DATE: 03/13/22/RAD Signed Date of Exam:03/13/22 US VENOUS LOWER EXT LT PROCEDURE: US left lower extremity venous. TECHNIQUE: Multiple real-time grayscale images were obtained over the left lower extremity in various projections. Additional duplex Doppler and color Doppler images were also obtained. INDICATION: Left leg pain and swelling. FINDINGS: There is normal compression, flow and augmentation demonstrated from the common femoral vein to the popliteal vein. The greater saphenous junction is patent. The visualized calf veins are patent. IMPRESSION: 1. No sonographic evidence of left lower extremity deep venous thrombosis. Dictated by: Dictated on workstation # [id number] Dict: 03/13/22 1109 Trans: 03/13/22 1110 [facility] [id number] Interpreted by: BARBARA GONZALES MD Electronically signed by: BARBARA GONZALES MD 03/13/22 1110 Reviewed: Reviewed by Me Departure Impression Primary Impression: Suspected DVT (deep vein thrombosis) Disposition: HOME, SELF-CARE Condition: Stable Departure-Patient Inst. Decision time for Depature: 22:07 Referrals: MARQUISE JONES MD (PCP/Family) Primary Care Physician Patient Instructions: Deep Vein Thrombosis (Blood Clots in the Legs) (DC) Add. Discharge Instructions: I strongly suspect that you have a clot in your leg. On top of your outpatient order form is the number to call tomorrow and get an ultrasound done at the hospital. The oxygen equipment technician will call the results to the ER physician on duty while you are still here and if it is positive we will get you set up with blood thinners to keep this from getting any worse. You can use heat, Tylenol and ibuprofen as necessary for pain. Return to the ER promptly for chest pain, shortness of air or other worsening symptoms. All discharge instructions reviewed with patient and/or family. Voiced understanding. Copy Copies To 1: MARQUISE JONES MD, TITUS J Mar 12, 2022 21:22
[2022-03-12 21:34] LABS: BASOPHILS % (AUTO) 1 % (0-10); EOSINOPHILS # (AUTO) 0.2 10^3/uL (0.0-0.3); EOSINOPHILS % (AUTO) 4 % (0-10); HEMATOCRIT 41 % (40-54); HEMOGLOBIN 13.8 g/dL (13.3-17.7); LYMPHOCYTES # (AUTO) 1.6 10^3/uL (1.0-4.0); LYMPHOCYTES % (AUTO) 29 % (12-44); MEAN CORPUSCULAR HEMOGLOBIN 32 pg (25-34); MEAN CORPUSCULAR HGB CONC 34 g/dL (32-36); MEAN CORPUSCULAR VOLUME 93 fL (80-99); MEAN PLATELET VOLUME 10.3 fL (9.0-12.2); MONOCYTES # (AUTO) 0.6 10^3/uL (0.0-1.0); MONOCYTES % (AUTO) 10 % (0-12); NEUTROPHILS % (AUTO) 55 % (42-75); PLATELET COUNT 169 10^3/uL (130-400); WHITE BLOOD COUNT 5.4 10^3/uL (4.3-11.0)
[2022-03-12 21:43] LABS: POTASSIUM 3.9 MMOL/L (3.6-5.0)
[2022-03-12 21:46] LABS: FIBRIN DEGRADATION PRODUCTS 0.74 UG/ML (0.00-0.49); PROTHROMBIN TIME PATIENT 13.5 SEC (12.2-14.7)
[2022-03-12 21:49] LABS: CREATININE SERUM 0.97 MG/DL (0.60-1.30)
[2022-03-12] MEDS ORDERED: ENOXAPARIN 100 MG/1 ML (LOVENOX) SYR SC ONE (22:15)
[2022-03-12 22:20] VITALS: BP 130/82
== END 2022-03-12 22:24 | disposition home or self-care (01) ==
LOC: EDUNIT# 20:44 → ER 20:47
DX: M79.662 Pain in left lower leg (principal); M79.89 Other specified soft tissue disorders
CPT/HCPCS: 36415; 80048; 85025; 85379; 85610

== ENCOUNTER → 2022-03-13 | Outpatient (CLI) | payer MEDICARE, OTHER ==
--- NOTE | 2022-03-13 11:11 | Diagnostic Imaging Report ---
PROCEDURE: US left lower extremity venous. TECHNIQUE: Multiple real-time grayscale images were obtained over the left lower extremity in various projections. Additional duplex Doppler and color Doppler images were also obtained. INDICATION: Left leg pain and swelling. FINDINGS: There is normal compression, flow and augmentation demonstrated from the common femoral vein to the popliteal vein. The greater saphenous junction is patent. The visualized calf veins are patent. IMPRESSION: 1. No sonographic evidence of left lower extremity deep venous thrombosis. Dictated by: Dictated on workstation # [id number]
== END ==
LOC: RAD 10:42
PROVIDERS: ATTEND Emergency Medicine
DX: M79.89 Other specified soft tissue disorders (principal); M79.662 Pain in left lower leg

== ENCOUNTER 2022-05-15 14:31 | Emergency (ER) | payer MEDICARE, OTHER ==
[~2022-05-15] VITALS: Ht 170 cm; Wt 110.5 kg
[2022-05-15] MEDS ORDERED: ASPIRIN 81 MG CHEW (CHILDREN'S ASA) PO ONE (14:45)
[2022-05-15] MEDS ORDERED: SUCRALFATE 1 GM (CARAFATE) TAB PO ONE (14:45)
[2022-05-15] MEDS ORDERED: ANTACID SUSP 30 ML UDC (MYLANTA) PO ONE (14:45)
[2022-05-15] MEDS ORDERED: LIDOCAINE 2% VISCOUS 15 ML UDC PO ONE (14:45)
--- NOTE | 2022-05-15 14:47 | ED Chest Pain ---
General Chief Complaint: Chest Pain Stated Complaint: HEARTBURN/CHEST DISCOMFORT Nursing Triage Note: PT STATES EPIGASTRIC PAIN THAT STARTED LAST NIGHT AFTER EATING GUYANESE FOOD, DENIES FEVER OR COUGH, A LITTLE SOB, HX OF CABG, CLEAN CATH ABOUT A YR AGO Source: patient Exam Limitations: no limitations History of Present Illness Date Seen by Provider: May 15, 2022 Time Seen by Provider: 14:30 Initial Comments 71-year-old male presents the emergency department today for "heartburn." He only very rarely gets heartburn however he states symptoms started last night at midnight and have been constant since that time. The burning mid central pressure with radiation up into his neck. Some mild shortness of breath associated with it as well. No fever chills cough. No nausea vomiting or diaphoresis. Does have a history of two-vessel CABG. States he had a clean catheter a year ago. Denies any changes in bowel or bladder habits, abdominal pain. He has tried Tums, milk each of which only relieves his symptoms very temporarily. Allergies and Home Medications Allergies Coded Allergies: No Known Drug Allergies (Unverified , 02/13/18) Patient Home Medication List Home Medication List Reviewed: Yes Acetaminophen (Tylenol Arthritis) 650 Mg Tablet.er, 650 MG PO Q8H PRN for PAIN- MILD, (Reported) Entered as Reported by: MYLES WHITT on 06/10/18 0336 Ascorbic Acid (Vitamin C) 1,000 Mg Tablet, 1,000 MG PO DAILY, (Reported) Entered as Reported by: HUANG DACOSTA on 02/13/18 1048 Aspirin (Aspir 81) 81 Mg Tablet.dr, 81 MG PO DAILY, (Reported) Entered as Reported by: HUANG DACOSTA on 02/13/18 1054 Carvedilol (Carvedilol) 6.25 Mg Tablet, 6.25 MG PO BID, (Reported) Entered as Reported by: LIDIA ROMANO on 08/04/20 0730 Cefdinir (Cefdinir) 300 Mg Capsule, 300 MG PO BID Prescribed by: JANELLE AJ on 03/05/21 1856 Ferrous Sulfate (Ferrous Sulfate) 325 Mg Tablet, 325 MG PO DAILY, (Reported) Entered as Reported by: LIDIA ROMANO on 08/04/20 0730 Furosemide (Furosemide) 20 Mg Tablet, 20 MG PO DAILY, (Reported) Entered as Reported by: MYLES WHITT on 06/10/18 0333 Lactobacillus Acidophilus (Probiotic Acidophilus) 1 Each Tablet, 1 EACH PO DAILY, (Reported) Entered as Reported by: HUANG DACOSTA on 02/13/18 1049 Levothyroxine Sodium (Levothyroxine Sodium) 112 Mcg Tablet, 224 MCG PO DAILY, (Reported) Entered as Reported by: LIDIA ROMANO on 08/04/20 0730 Magnesium Oxide (Magnesium) 500 Mg Capsule, 500 MG PO HS, (Reported) Entered as Reported by: HUANG DACOSTA on 02/13/18 1045 Multivit-Min/FA/Lycopen/Lutein (Centrum Silver Men Tablet) 1 Each Tablet, 1 EACH PO DAILY, (Reported) Entered as Reported by: HUANG DACOSTA on 02/13/18 1046 Nitroglycerin (Nitroglycerin) 0.4 Mg Tab.subl, 0.4 MG SL PRN, (Reported) Entered as Reported by: HUANG DACOSTA on 02/13/18 1053 [place]-3 Fatty Acids/Fish Oil ([place] 3 1,000 mg Softgel) 1 Each Capsule, 1 EACH PO DAILY, (Reported) Entered as Reported by: HUANG DACOSTA on 02/13/18 1048 Ondansetron (Ondansetron Odt) 4 Mg Tab.rapdis, 4 MG PO Q4H Prescribed by: SMITHA HOFF on 10/29/21 0125 Pantoprazole Sodium (Pantoprazole Sodium) 40 Mg Tablet.dr, 40 MG PO DAILY, (Reported) Entered as Reported by: HUANG DACOSTA on 02/13/18 1053 Potassium Gluconate (Potassium) 99 Mg Tablet, 99 MG PO DAILY, (Reported) Entered as Reported by: HUANG DACOSTA on 02/13/18 1045 Rosuvastatin Calcium (Rosuvastatin Calcium) 20 Mg Tablet, 20 MG PO HS, (Reported) Entered as Reported by: LIDIA ROMANO on 08/04/20 0730 Trazodone HCl (Trazodone HCl) 100 Mg Tablet, 100 MG PO HS, (Reported) Entered as Reported by: HUANG DACOSTA on 02/13/18 1052 [Fiber Laxative] , 3 CAP PO HS, (Reported) Entered as Reported by: LIDIA ROMANO on 08/04/20 9130 Review of Systems Review of Systems Constitutional: no symptoms reported EENTM: No Symptoms Reported Respiratory: Shortness of Air Cardiovascular: Chest Pain Gastrointestinal: See HPI Genitourinary: No Symptoms Reported Musculoskeletal: no symptoms reported Skin: no symptoms reported Psychiatric/Neurological: No Symptoms Reported Endocrine: No Symptoms Reported Hematologic/Lymphatic: No Symptoms Reported Past Pskmieg-Suofld-Idrrfn Hx Patient Social History Tobacco Use?: No Use of E-Cig and/or Vaping dev: No Substance use?: No Alcohol Use?: No Immunizations Up To Date Tetanus Booster (TDap): Unknown First/Initial COVID19 Vaccinat: august 2020 Second COVID19 Vaccination Kevin: SEPTEMBER 2020 Third COVID19 Vaccination Date: YES Seasonal Allergies Seasonal Allergies: No Past Medical History Surgery/Hospitalization HX: double bypass pmh: high chol, high bp, gerd, hypothyroid, cad Surgeries: Yes Cardiac, CABG, Joint Replacement, Orthopedic, Thyroidectomy Respiratory: No Currently Using CPAP: No Currently Using BIPAP: No Cardiac: Yes (2 VESSEL CABG 2017) Coronary Artery Disease, High Cholesterol, Hypertension Neurological: No Genitourinary: No Gastrointestinal: Yes Gastroesophageal Reflux, Diverticulosis Musculoskeletal: Yes (LEFT TOTAL KNEE REPLACEMENT 2013) Arthritis Endocrine: Yes (THYROIDECTOMY IN THE FOR BENIGN DISEASE) Hypothyroidsim Cancer: No Psychosocial: No Integumentary: No Blood Disorders: No Family Medical History Reviewed Nursing Family Hx FH: emphysema 19 MOTHER FH: heart disease G8 SISTER Myocardial infarction Maternal Grandfather No Pertinent Family Hx PAST SURGICAL HISTORY: -THYROIDECTOMY IN THE FOR BENIGN DISEASE -LEFT TOTAL KNEE REPLACEMENT 2013 -2 VESSEL CABG 2017 Physical Exam Vital Signs Vital Signs - First Documented 05/15/22 14:37 Temp 36.2 Pulse 76 Resp 20 B/P (MAP) 206/110 (142) Pulse Ox 97 O2 Delivery Room Air Capillary Refill : Less Than 3 Seconds Height, Weight, BMI Height: 5'7.00" Weight: 231lbs. 3.2oz. 104.135169hr; 38.00 BMI Method:Stated General Appearance: No Apparent Distress, WD/WN HEENT: PERRL/EOMI, Normal ENT Inspection, Pharynx Normal Neck: Normal Inspection, Non Tender, Supple Respiratory: Chest Non Tender, Lungs Clear, Normal Breath Sounds, No Accessory Muscle Use, No Respiratory Distress Cardiovascular: Regular Rate, Rhythm, No Gallop, No JVD, No Murmur, Normal Peripheral Pulses, Other (2+ pitting edema bilateral lower extremities) Gastrointestinal: Normal Bowel Sounds, No Organomegaly, No Pulsatile Mass, Non Tender Extremity: Normal Capillary Refill, Normal Range of Motion, Non Tender, No Calf Tenderness Neurologic/Psychiatric: Alert, Oriented x3, Normal Mood/Affect Skin: Normal Color, Warm/Dry Lymphatic: No Adenopathy Progress/Results/Core Measures Results/Orders Lab Results Laboratory Tests Test 05/15/22 14:45 Range/Units White Blood Count 6.9 4.3-11.0 10^3/uL Red Blood Count 4.72 4.30-5.52 10^6/uL Hemoglobin 14.7 13.3-17.7 g/dL Hematocrit 44 40-54 % Mean Corpuscular Volume 93 80-99 fL Mean Corpuscular Hemoglobin 31 25-34 pg Mean Corpuscular Hemoglobin Concent 34 32-36 g/dL Red Cell Distribution Width 12.1 10.0-14.5 % Platelet Count 192 130-400 10^3/uL Mean Platelet Volume 10.8 9.0-12.2 fL Immature Granulocyte % (Auto) 2 % Neutrophils (%) (Auto) 60 42-75 % Lymphocytes (%) (Auto) 20 12-44 % Monocytes (%) (Auto) 10 0-12 % Eosinophils (%) (Auto) 8 0-10 % Basophils (%) (Auto) 1 0-10 % Neutrophils # (Auto) 4.1 1.8-7.8 10^3/uL Lymphocytes # (Auto) 1.4 1.0-4.0 10^3/uL Monocytes # (Auto) 0.7 0.0-1.0 10^3/uL Eosinophils # (Auto) 0.5 H 0.0-0.3 10^3/uL Basophils # (Auto) 0.1 0.0-0.1 10^3/uL Immature Granulocyte # (Auto) 0.1 0.0-0.1 10^3/uL Sodium Level 139 135-145 MMOL/L Potassium Level 3.9 3.6-5.0 MMOL/L Chloride Level 103 98-107 MMOL/L Carbon Dioxide Level 26 21-32 MMOL/L Anion Gap 10 5-14 MMOL/L Blood Urea Nitrogen 17 7-18 MG/DL Creatinine 1.01 0.60-1.30 MG/DL Estimat Glomerular Filtration Rate 80 BUN/Creatinine Ratio 17 Glucose Level 105 70-105 MG/DL Calcium Level 8.7 8.5-10.1 MG/DL Corrected Calcium 8.7 8.5-10.1 MG/DL Total Bilirubin 0.4 0.1-1.0 MG/DL Aspartate Amino Transf (AST/SGOT) 40 H 5-34 U/L Alanine Aminotransferase (ALT/SGPT) 51 0-55 U/L Alkaline Phosphatase 75 40-136 U/L Troponin I < 0.028 <0.028 NG/ML Total Protein 7.0 6.4-8.2 GM/DL Albumin 4.0 3.2-4.5 GM/DL Lipase 20 8-78 U/L My Orders Orders - CORYSUSANNE Perdomo DO Ekg Tracing (05/15/22 14:36) Aspirin Chewable Tablet (Baby Aspirin Ch (05/15/22 14:45) Sucralfate Tablet (Carafate Tablet) (05/15/22 14:45) Antacid Suspension (Mylanta Suspension (05/15/22 14:45) Lidocaine 2% Viscous 15 Ml (Xylocaine Vi (05/15/22 14:45) Cbc With Automated Diff (05/15/22 14:41) Comprehensive Metabolic Panel (05/15/22 14:41) Troponin I [place] (05/15/22 14:41) Lipase (05/15/22 14:41) Ekg Tracing (05/15/22 14:41) Chest 1 View, Ap/Pa Only (05/15/22 14:41) Medications Given in ED Current Medications Medications Dose Ordered Sig/Thomas Route Start Time Stop Time Status Last Admin Dose Admin Al Hydrox/Mg Hydrox/Simethicone 30 ml ONCE ONCE PO 05/15/22 14:45 05/15/22 14:46 DC 05/15/22 14:48 30 ML Aspirin 324 mg ONCE ONCE PO 05/15/22 14:45 05/15/22 14:46 DC 05/15/22 14:48 324 MG Lidocaine HCl 5 ml ONCE ONCE PO 05/15/22 14:45 05/15/22 14:46 DC 05/15/22 14:48 5 ML Sucralfate 1 gm ONCE ONCE PO 05/15/22 14:45 05/15/22 14:46 DC 05/15/22 14:48 1 GM Vital Signs/I&O 05/15/22 14:37 Temp 36.2 Pulse 76 Resp 20 B/P (MAP) 206/110 (142) Pulse Ox 97 O2 Delivery Room Air Blood Pressure Mean: 142 EKG : Comment Sinus rhythm with a rate of 64 bpm. Incomplete right bundle branch block. T wave inversions in V1 and V2 otherwise no ST or T wave abnormalities. No ectopy. No STEMI. Departure Communication (Admissions) Patient is hemodynamically stable. Heart score is 3. Everything points to her acid reflux at this point. I believe he is low risk with a negative troponin given the duration of his symptoms I do not think a second troponin is warrant ed. EKG is nonischemic and he had a heart cath less than a year ago that was negative. Symptoms are nearly completely relieved with GI cocktail he states he is feeling much better. He is discharged home in stable condition with close follow-up and strict return precautions. Impression Primary Impression: Atypical chest pain Disposition: HOME, SELF-CARE Condition: Stable Departure-Patient Inst. Referrals: MARQUISE JONES MD (PCP/Family) Primary Care Physician Patient Instructions: Chest Pain That Is Not Caused by the Heart (DC) Add. Discharge Instructions: Use Carafate and Maalox as needed. Increase your fluids. Rest. I do not believe this is coming from your heart given the negative heart enzyme, normal electrical tracing of your heart and a heart cath that was negative within the last year. That said you should return to the emergency department immediately if your symptoms change in any way concerning to you. I recommend following up with your primary doctor next week should your symptoms persist. All discharge instructions reviewed with patient and/or family. Voiced understanding. Scripts Sucralfate (Carafate) 1 Gram Tablet 1 GM PO TIDAC for 5 Days, #15 TAB Prov: SUSANNE RAY DO 05/15/22 SUSANNE RAY DO May 15, 2022 14:47
[2022-05-15 14:53] LABS: BASOPHILS # (AUTO) 0.1 10^3/uL (0.0-0.1); BASOPHILS % (AUTO) 1 % (0-10); EOSINOPHILS # (AUTO) 0.5 10^3/uL (0.0-0.3); EOSINOPHILS % (AUTO) 8 % (0-10); HEMATOCRIT 44 % (40-54); HEMOGLOBIN 14.7 g/dL (13.3-17.7); LYMPHOCYTES # (AUTO) 1.4 10^3/uL (1.0-4.0); LYMPHOCYTES % (AUTO) 20 % (12-44); MEAN CORPUSCULAR HEMOGLOBIN 31 pg (25-34); MEAN CORPUSCULAR HGB CONC 34 g/dL (32-36); MEAN CORPUSCULAR VOLUME 93 fL (80-99); MEAN PLATELET VOLUME 10.8 fL (9.0-12.2); MONOCYTES # (AUTO) 0.7 10^3/uL (0.0-1.0); MONOCYTES % (AUTO) 10 % (0-12); NEUTROPHILS # (AUTO) 4.1 10^3/uL (1.8-7.8); NEUTROPHILS % (AUTO) 60 % (42-75); PLATELET COUNT 192 10^3/uL (130-400); WHITE BLOOD COUNT 6.9 10^3/uL (4.3-11.0)
[2022-05-15 15:03] LABS: CHLORIDE 103 MMOL/L (98-107); POTASSIUM 3.9 MMOL/L (3.6-5.0); SODIUM 139 MMOL/L (135-145)
[2022-05-15 15:04] LABS: CALCIUM 8.7 MG/DL (8.5-10.1)
[2022-05-15 15:05] LABS: GLUCOSE 105 MG/DL (70-105)
[2022-05-15 15:06] LABS: CARBON DIOXIDE 26 MMOL/L (21-32)
[2022-05-15 15:07] LABS: BILIRUBIN,TOTAL 0.4 MG/DL (0.1-1.0)
[2022-05-15 15:09] LABS: ALKALINE PHOSPHATASE 75 U/L (40-136); CREATININE SERUM 1.01 MG/DL (0.60-1.30); GFR ESTIMATED 80
[2022-05-15 15:10] LABS: BUN/CREATININE RATIO 17
[2022-05-15 15:12] LABS: ALANINE AMINOTRANSFERASE 51 U/L (0-55); LIPASE 20 U/L (8-78)
--- NOTE | 2022-05-15 15:26 | Diagnostic Imaging Report ---
CHEST 1 VIEW, AP/PA ONLY Indication: Chest pain. Comparison: 10/28/2021 Findings: No focal airspace disease in the visualized lungs. No pleural effusion or pneumothorax. Stable cardiomegaly with changes of CABG. Prior thyroidectomy with extensive surgical clips. Impression: 1. No acute cardiopulmonary process by portable radiography. Dictated by: Dictated on workstation # [id number]
[2022-05-15] MEDS ORDERED: SUCR1TAB36 PO (15:30)
[2022-05-15 15:40] VITALS: BP 154/89
== END 2022-05-15 15:40 | disposition home or self-care (01) ==
LOC: EDUNIT# 14:31 → ER 14:34
DX: K21.9 Gastro-esophageal reflux disease without esophagitis (principal); Z95.1 Presence of aortocoronary bypass graft
CPT/HCPCS: 36415; 71045; 80053; 83690; 84484; 85025; 93005

== ENCOUNTER 2022-06-16 05:32 | Outpatient (CLI) | payer MEDICARE ==
[~2022-06-16] VITALS: Ht 170.2 cm; Wt 106.8 kg
[~2022-06-16 05:32] MED LIST changes: +SUCR1TAB36 PO
== END 2022-06-21 16:50 | disposition home or self-care (01) ==
LOC: PREOP 05:32
PROVIDERS: ATTEND Internal Medicine
DX: Z01.818 Encounter for other preprocedural examination (principal); K62.5 Hemorrhage of anus and rectum

== ENCOUNTER 2022-06-24 07:27 | Day surgery (SDC) | payer MEDICARE, OTHER ==
--- NOTE | 2022-06-16 07:13 | HISTORY AND PHYSICAL ---
DATE OF SERVICE: 06/24/2022 COLONOSCOPY HISTORY AND PHYSICAL HISTORY OF PRESENT ILLNESS: The patient is a 71-year-old white male, who reports for the past year, he has been having increased problems with small volume fecal incontinence. He does not lose whole stool, but has more issues with seepage. A lot of times, when he wakes up in the morning, he will have some pressure, low-grade, crampy-type sensation. He knows it is going to be a bad day on those days. He denies seeing any blood. There have been no bowel habit changes and no associated medication changes. He denies any recent antibiotic use. PAST MEDICAL HISTORY: Significant for coronary artery disease, hypertension and hyperlipidemia. PAST SURGICAL HISTORY: He has had 2-vessel bypass surgery 4 years ago. He has had a total knee replacement a number of years ago and underwent thyroidectomy for Graves' disease back in the 80s. FAMILY HISTORY: Not aware of any family history for GI tract malignancy including colon cancer. PHYSICAL EXAMINATION: GENERAL: Reveals a pleasant, overweight white male, in no acute distress. VITAL SIGNS: Weight 242 pounds, blood pressure 130/90. HEENT: Unremarkable. Sclerae nonicteric. CHEST: Clear. CARDIAC: Reveals a regular rate and rhythm without murmur, S3 or S4. ABDOMEN: Soft, supple. Mild bilateral lower quadrant discomfort to palpation is present without rebound or guarding. No mass or organomegaly noted. Bowel sounds positive. No bruits noted. EXTREMITIES: Reveal no cyanosis, clubbing or edema. ASSESSMENT AND PLAN: The patient is set up for diagnostic colonoscopy for evaluation of bilateral lower quadrant abdominal pain and fecal incontinence. Prep instructions were given and questions were answered. The patient was advised to hold aspirin for a week prior to the procedure. He will continue his other medications unchanged. We will need to do base rectal biopsies to rule out microscopic colitis. Job ID: [id number] DocumentID: [id number] Dictated Date: 06/08/2022 10:29:48 Attending Psychiatrist Date: 06/08/2022 11:12:00 Dictated By: ANNABELLE CARTER MD
[~2022-06-24] VITALS: Ht 170.2 cm; Wt 106.8 kg
[2022-06-24] MEDS ORDERED: LACTATED RINGERS 1,000 ML IV STA (07:48)
--- NOTE | 2022-06-24 07:53 | Pre-Op Note & Conscious Sedat ---
Pre-Operative Progress Note Date H&P Reviewed: Jun 24, 2022 Time H&P Reviewed: 07:52 History & Physical: H&P Reviewed, Patient Examed, No changes noted Pre-Op Diagnosis: fecal incontenance diarrhea Conscious Sedation Pre-Proced ASA Score 2 For ASA 3 and 4: Consider anesthesia and medical clearance. Also, for patients with a history of failed moderate sedation consider anesthesia. Airway Lungs Heart ASA score ASA 1: a normal healthy patient ASA 2: a patient with a mild systemic disease (mid diabetes, controlled hypertension, obesity ASA 3: a patient with a severe systemic disease that limits activity (angina, COPD, prior Myocardial infarction) ASA 4: a patient with an incapacitating disease that is a constant threat to life (CHF, renal failure) ASA 5: a moribund patient not expected to survive 24 hrs. (ruptured aneurysm) ASA 6: a declared brain- patient whose organs are being harvested. For emergent operations, add the letter E after the classification Mallampati Classification Grade 2 Sedation Plan Analgesia, Amnesia, Plan communicated to team members, Discussed options with patient/fam, Discussed risks with patient/fam The patient is an appropriate candidate to undergo the planned procedure, sedation, and anesthesia. The patient immediately re-assessed prior to indication. ANNABELLE CARTER MD Jun 24, 2022 07:53
[2022-06-24 08:02] VITALS: BP 162/91
[2022-06-24] MEDS ORDERED: FINA5TAB6 PO (08:10)
[2022-06-24] MEDS ORDERED: ALBU8.5H6 (08:10)
[2022-06-24 09:20] VITALS: BP 117/65
--- NOTE | 2022-06-24 09:22 | Progress Note-Post Operative ---
Post-Procedure Note Physician (s)/Safety Instructor (s) Physician ANNABELLE CARTER MD Pre-Procedure Diagnosis Pre-Procedure Diagnosis: fecal incontenance diarrhea Post-Procedure Diagnosis Post-operative diagnosis: Prior to undergoing colonoscopy digital rectal evaluation was performed. Anal central tone was normal and the perianal reflexes intact. Prostate is unremarkable to digital inspection and no abnormalities noted on digital inspection of the anal canal or distal rectal vault. The colonoscope was then inserted into the rectum and under direct visualization advanced to the cecum. The cecum was identified by indication of the ileocecal valve and the cecal strap. Photographic documentation was good. Quality the prep was good except for small portion of the cecum being obscured by solid stool. Findings: There were no evidence for internal or external hemorrhoids. There is subtle loss of vascular markings in the mid and distal rectum without inflammatory change or ulceration. A biopsy was obtained and submitted for evidence for Overt proctitis versus microscopic colitis. 1 2 mm sessile hyperplastic appearing polyp was biopsied and cauterized from the mid rectum with no blood loss. Moderate diverticular disease confined to the sigmoid colon was present without evidence for diverticulitis. The descending colon splenic flexure transverse colon hepatic flexure ascending colon and cecum were unremarkable. Assessment #1 moderate diverticular disease confined to the sigmoid colon is present without evidence for diverticulitis. 2. 1 diminutive polyp was removed from the mid rectum with hyperplastic features would advocate consideration for repeat screening colonoscopy in 10 years. 3. With history of diarrhea and small-volume fecal incontinence biopsies from the rectum are pending for evaluation for underlying colitis. Further recommendations pending. In the interim the patient was advised to discontinue magnesium oxide and switch to magnesium maleate due to reduced incidence of diarrhea. Sincerely, Annabelle Carter MD. CC: ANNABELLE Lee MD Jun 24, 2022 09:22
[2022-06-24 09:25] VITALS: BP 123/72
[2022-06-24 09:30] VITALS: BP 117/69
--- NOTE | 2022-06-24 09:30 | Anesthesia-General Post-Op ---
MAC Patient Condition Mental Status/LOC: Same as Preop Cardiovascular: Satisfactory Nausea/Vomiting: Absent Respiratory: Satisfactory Pain: Controlled Complications: Absent Post Op Complications Complications None Follow Up Care/Instructions Patient Instructions None needed. Anesthesiology Discharge Order Discharge Order Patient is doing well, no complaints, stable vital signs, no apparent adverse anesthesia problems. No complications reported per nursing. CHELSY WEBER CRNA Jun 24, 2022 09:30
[2022-06-24 09:55] VITALS: BP 123/72
--- NOTE | 2022-06-27 16:09 | Physician Query-Final Dx ---
LUDWIN VARELA 06/27/22 1609: Clinic Account Progress/Dx Physician Query: Please clarify the following from the procedure report 1. A biopsy was obtained and submitted for evidence for Overt proctitis versus microscopic colitis. Was this removed by: A. cold biopsy B. hot biopsy 2. 1 2 mm sessile hyperplastic appearing polyp was biopsied and cauterized from the mid rectum with no blood loss. Was this removed by: A. Hot biopsy forceps B. Cold biopsy Date of Service Jun 24, 2022 at 07:27 ANNABELLE CARTER MD 06/28/22 1921: Clinic Account Progress/Dx DIAGNOSIS: Diagnosis A LUDWIN VARELA Jun 27, 2022 16:09 ANNABELLE CARTER MD Jun 28, 2022 19:21
== END 2022-06-24 10:25 | disposition home or self-care (01) ==
LOC: ENDO 07:27
PROVIDERS: ATTEND Internal Medicine
DX: K62.1 Rectal polyp (principal); K57.30 Diverticulosis of large intestine without perforation or abscess without bleeding; Z95.1 Presence of aortocoronary bypass graft

== ENCOUNTER 2022-09-21 19:13 | Emergency (ER) | payer MEDICARE, OTHER ==
[~2022-09-21] VITALS: Ht 170.2 cm; Wt 108.9 kg
[~2022-09-21 19:13] MED LIST changes: +ALBU8.5H6; +FINA5TAB6 PO
[2022-09-21 19:20] VITALS: BP 134/82
--- NOTE | 2022-09-21 19:28 | ED Integumentary General ---
General Chief Complaint: Skin/Wound Problems Stated Complaint: LACERATION ON RIGHT ARM Source: patient Exam Limitations: no limitations (MARTHA RUIZ) History of Present Illness Date Seen by Provider: Sep 21, 2022 Time Seen by Provider: 19:25 Initial Comments Patient is a 72-year-old male who presents ED with a skin avulsion to his right forearm. Patient states he nicked his right forearm on the corner of his table at home this morning. Had immediate bleeding. Applied a 4 x 4 over the wound. Patient states when he went home this evening he noted some bleeding from the wound after removing the 4 x 4. Applied another 4 x 4 and came to the ER. He is not on blood thinners. States he is not up-to-date on his tetanus within the past 5 years. Patient denies of any numbness and tingling. (MARTHA RUIZ) Allergies and Home Medications Allergies Coded Allergies: No Known Drug Allergies (Unverified , 02/13/18) Patient Home Medication List Home Medication List Reviewed: Yes (MARTHA RUIZ) Acetaminophen (Tylenol Arthritis) 650 Mg Tablet.er, 650 MG PO Q8H PRN for PAIN- MILD, (Reported) Entered as Reported by: MYLES WHITT on 06/10/18 0336 Albuterol Sulfate (Ventolin Hfa) 90 Mcg Hfa.aer.ad, (Reported) Entered as Reported by: DAWNA CHURCHILL on 06/24/22 0810 Ascorbic Acid (Vitamin C) 1,000 Mg Tablet, 1,000 MG PO DAILY, (Reported) Entered as Reported by: HUANG DACOSTA on 02/13/18 1048 Aspirin (Aspir 81) 81 Mg Tablet.dr, 81 MG PO DAILY, (Reported) Entered as Reported by: HUANG DACOSTA on 02/13/18 1054 Carvedilol (Carvedilol) 6.25 Mg Tablet, 6.25 MG PO BID, (Reported) Entered as Reported by: LIDIA ROMANO on 08/04/20 0730 Ferrous Sulfate (Ferrous Sulfate) 325 Mg Tablet, 325 MG PO DAILY, (Reported) Entered as Reported by: LIDIA ROMANO on 08/04/20 0730 Finasteride (Finasteride) 5 Mg Tablet, 5 MG PO, (Reported) Entered as Reported by: DAWNA CHURCHILL on 06/24/22 0810 Furosemide (Furosemide) 20 Mg Tablet, 20 MG PO DAILY, (Reported) Entered as Reported by: MYLES WHITT on 06/10/18 0333 Lactobacillus Acidophilus (Probiotic Acidophilus) 1 Each Tablet, 1 EACH PO DAILY, (Reported) Entered as Reported by: HUANG DACOSTA on 02/13/18 1049 Levothyroxine Sodium (Levothyroxine Sodium) 112 Mcg Tablet, 224 MCG PO DAILY, (Reported) Entered as Reported by: LIDIA ROMANO on 08/04/20 0730 Multivit-Min/FA/Lycopen/Lutein (Centrum Silver Men Tablet) 1 Each Tablet, 1 EACH PO DAILY, (Reported) Entered as Reported by: HUANG DACOSTA on 02/13/18 1046 Nitroglycerin (Nitroglycerin) 0.4 Mg Tab.subl, 0.4 MG SL PRN, (Reported) Entered as Reported by: HUANG DACOSTA on 02/13/18 1053 [place]-3 Fatty Acids/Fish Oil ([place] 3 1,000 mg Softgel) 1 Each Capsule, 1 EACH PO DAILY, (Reported) Entered as Reported by: HUANG DACOSTA on 02/13/18 1048 Pantoprazole Sodium (Pantoprazole Sodium) 40 Mg Tablet.dr, 40 MG PO DAILY, (Reported) Entered as Reported by: HUANG DACOSTA on 02/13/18 1053 Potassium Gluconate (Potassium) 99 Mg Tablet, 99 MG PO DAILY, (Reported) Entered as Reported by: HUANG DACOSTA on 02/13/18 1045 Rosuvastatin Calcium (Rosuvastatin Calcium) 20 Mg Tablet, 20 MG PO HS, (Reported ) Entered as Reported by: LIDIA ROMANO on 08/04/20 0730 Trazodone HCl (Trazodone HCl) 100 Mg Tablet, 100 MG PO HS, (Reported) Entered as Reported by: HUANG DACOSTA on 02/13/18 1052 [Fiber Laxative] , 3 CAP PO HS, (Reported) Entered as Reported by: LIDIA ROMANO on 08/04/20 0730 Review of Systems Review of Systems Constitutional: No chills, No diaphoresis EENTM: No ear pain, No blurred vision, No double vision, No mouth pain, No mouth swelling Respiratory: No cough, No dyspnea on exertion Cardiovascular: No chest pain Gastrointestinal: No abdominal pain, No diarrhea, No nausea, No vomiting Genitourinary: No decreased output, No discharge Musculoskeletal: No back pain, No joint swelling, No muscle pain Skin: change in color (MARTHA RUIZ) All Other Systems Reviewed Negative Unless Noted: Yes (MARTHA RUIZ) Past Kulcfxx-Cgjvpx-Snlgvm Hx Immunizations Up To Date Tetanus Booster (TDap): Unknown First/Initial COVID19 Vaccinat: 2020 Second COVID19 Vaccination Kevin: 2020 Third COVID19 Vaccination Date: 2021 (MARTHA RUIZ) Seasonal Allergies Seasonal Allergies: No (MARTHA RUIZ) Past Medical History Surgery/Hospitalization HX: double bypass pmh: high chol, high bp, gerd, hypothyroid, cad, LT KNEE REPLACED Surgeries: Yes (TWO TKR ON LEFT, LASER TO URETHERA) Cardiac, CABG, Joint Replacement, Orthopedic, Thyroidectomy Respiratory: No Currently Using CPAP: No Currently Using BIPAP: No Cardiac: Yes (2 VESSEL CABG 2017) Coronary Artery Disease, High Cholesterol, Hypertension Neurological: No Genitourinary: No Gastrointestinal: Yes (RECTAL INCONTINENCE, LOWER ABD PAIN) Gastroesophageal Reflux, Diverticulosis Musculoskeletal: Yes (LEFT TOTAL KNEE REPLACEMENT 2013) Arthritis Endocrine: Yes (THYROIDECTOMY IN THE S FOR BENIGN DISEASE) Hypothyroidsim HEENT: Yes (GLASSES, DENTURES AND HEARING AIDS) Hearing Impairment: Hard of Hearing, Hearing Aide Right, Hearing Aide Left Cancer: No Psychosocial: No Integumentary: No Blood Disorders: No (MARTHA RUIZ) Family Medical History FH: emphysema 19 MOTHER FH: heart disease G8 SISTER Myocardial infarction Maternal Grandfather No Pertinent Family Hx PAST SURGICAL HISTORY: -THYROIDECTOMY IN THE FOR BENIGN DISEASE -LEFT TOTAL KNEE REPLACEMENT 2013 -2 VESSEL CABG 2017 (MARTHA RUIZ) Physical Exam Vital Signs Vital Signs - First Documented 09/21/22 19:20 Temp 36.7 Pulse 81 Resp 14 B/P (MAP) 134/82 (99) Pulse Ox 95 O2 Delivery Room Air (LUIS EDUARDO,SMITHA K DO) Vital Signs Capillary Refill : (MARTHA RUIZ) General Appearance: WD/WN, no apparent distress HEENT: PERRL/EOMI, normal ENT inspection, TMs normal, pharynx normal Neck: non-tender, full range of motion, supple, normal inspection Cardiovascular: regular rate, rhythm, no edema, no gallop, no JVD Respiratory: chest non-tender, lungs clear, normal breath sounds, no re spiratory distress, no accessory muscle use Gastrointestinal: normal bowel sounds, non tender, soft, no organomegaly Back: normal inspection, no CVA tenderness Extremities: other (2 x 2 centimeter skin avulsion to right dorsum forearm. No active bleeding. Wound appears clean. Normal active range of motion of right wrist and elbow) Skin: other (2 x 2 centimeter skin avulsion to right dorsal forearm) (MARTHA TRUONG) Progress/Results/Core Measures Results/Orders Medications Given in ED Current Medications Medications Dose Ordered Sig/Thomas Route Start Time Stop Time Status Last Admin Dose Admin Diphtheria/ Tetanus/Acell Pertussis 0.5 ml ONCE ONCE IM 09/21/22 19:45 09/21/22 19:46 DC 09/21/22 19:47 0.5 ML (LUIS EDUARDO,SMITHA K DO) Vital Signs/I&O 09/21/22 19:20 Temp 36.7 Pulse 81 Resp 14 B/P (MAP) 134/82 (99) Pulse Ox 95 O2 Delivery Room Air (LUIS EDUARDO,SMITHA K DO) Departure Communication (PCP) Patient has a skin avulsion to right forearm. No active bleeding. Cleaned the area with normal saline and Shur-Clens. Mild bleeding was noted. Use silver nitrate successfully. No repair with stitches or glue at this time. Area was covered with a nonadherent and Neosporin. Discussed wound care at home. Provided a tetanus shot. If increased pain, redness or swelling to return back to ED. (MARTHA RUIZ) Impression Primary Impression: Skin avulsion Disposition: 01 HOME, SELF-CARE Condition: Stable Departure-Patient Inst. Decision time for Depature: 19:28 (MARTHA RUIZ) Referrals: MARQUISE JONES MD (PCP/Family) Primary Care Physician Patient Instructions: Wound Care (DC) ATTENDING PHYSICIAN NOTE: I WAS PHYSICALLY PRESENT ER PHYSICIAN, BUT I WAS NOT INVOLVED IN ANY DECISION MAKING OR ANY CARE OF THIS PATIENT, AND I AM NOT COLLABORATING PHYSICIAN. (SMITHA HOFF DO) MARTHA RUIZ Sep 21, 2022 19:28 SMITHA HOFF DO Sep 22, 2022 01:47
[2022-09-21] MEDS ORDERED: TETANUS,DIPTH,PERTUSS P/F (BOOSTRIX) 0.5 ML VIAL IM ONE (19:45)
== END 2022-09-21 19:50 | disposition home or self-care (01) ==
LOC: EDUNIT# 19:13 → ER 19:16
DX: S51.801A Unspecified open wound of right forearm, initial encounter (principal); Z23 Encounter for immunization; W26.8XXA Contact with other sharp object(s), not elsewhere classified, initial encounter; Y92.009 Unspecified place in unspecified non-institutional (private) residence as the place of occurrence of the external cause
CPT/HCPCS: 90715